=== PATIENT | female | born 1990 | race Caucasian/White ===

== ENCOUNTER 2016-05-29 14:43 | Observation (INO) | payer OTHER ==
[2016-05-29 15:10] VITALS: O2SAT 98
[2016-05-29 16:10] VITALS: PULSE 91
[2016-05-29] MEDS ORDERED: Sodium Chloride 0.9% 1000 ML 1,000 ML IV STA (16:53)
[2016-05-29] MEDS ORDERED: Sodium Chloride 0.9% 1000 ML 1,000 ML ONE (17:03)
[2016-05-29 18:07] LABS: COMPLETE URINE MICROSCOPIC? NO; Collection Type CCMS
[2016-05-29 19:55] VITALS: BP 127/74
--- NOTE | 2016-05-30 08:48 | XRAY ---
Indication: Interval growth. Cervical length. 2-dimensional OB ultrasound performed. Comparison: April 12, 2016 Again there is a single viable intrauterine now in cephalic presentation. Normal four-chamber heart with heart rate 110 bpm. Normal three-vessel cord and cord insertion. Images of the head, spine, kidneys, and bladder are unremarkable. Placenta is anterior without abruption/previa. Cervical length measures 3.9 cm. BPD measures 6.65 cm corresponding to 26 weeks 6 days. HC measures 25.35 cm corresponding to 27 weeks 4 day. AC measures 21.79 cm corresponding to 26 weeks 2 days. FL measures 4.78 cm corresponding to 26 weeks 0 days. SAMPSON is 15.2 cm. Impression: Again single viable intrauterine with mean gestational age of 26 weeks 5 days. Normal progression in the .
== END 2016-05-29 19:40 | disposition home or self-care (01) ==
LOC: EDSTATUS 15:19 → OB 15:23
PROVIDERS: ADMIT Family Medicine; ATTEND Family Medicine
DX: Z34.92 Encounter for supervision of normal pregnancy, unspecified, second trimester (principal)
CPT/HCPCS: 36000; 76805; 81002; G0378

== ENCOUNTER 2016-05-29 19:51 | Emergency (ER) | payer OTHER ==
[2016-05-29] MEDS ORDERED: ROCEPHIN 1 Gm-D5w 50 ml Bag** 50 ML IV ONE ×2 (19:56→20:20)
[2016-05-29] MEDS ORDERED: Sodium Chloride 0.9% 1000 ML 1,000 ML ONE (19:58)
[2016-05-29] MEDS ORDERED: Sodium Chloride 0.9% 1000 ML 1,000 ML IV SCH (20:00)
[2016-05-29 20:08] LABS: BASOPHIL % 0.1 % (0.0-0.4); Eosinophil % 1.4 % (0.00-5.0); Granulocytes % 70.3 % (36.0-66.0); Lymphocytes % 19.9 % (24.0-44.0); Mean Corpuscular Hemoglobin 27.9 pg (26-32); Mean Platelet Volume 10.8 fl (6-9.5); Monocytes % 8.3 % (0.0-12.0); Platelet Count 377 K/mm3 (150-450); Red Blood Count 3.62 M/mm3 (4.1-5.4); White Blood Count 10.7 K/mm3 (4.0-10.5)
[2016-05-29 20:11] LABS: BLOOD UREA NITROGEN 5 mg/dL (9-20); CHLORIDE 105 mEq/L (98-107); Carbon Dioxide 19.8 mEq/L (21-32); Glucose 99 MG/DL (70-110); LIPASE 139 U/L (73-393); Potassium 3.7 mEq/L (3.5-5.1); SODIUM 138 mEq/L (136-145)
--- NOTE | 2016-05-29 20:49 | ERPHSYRPT ---
- History of Present Illness Time Seen by Provider: 05/29/16 20:10 Source: patient Exam Limitations: clinical condition Patient Subjective Stated Complaint: pt was dizzy today and went to drs office and was sent to the hospital -she started in er [place] telling staff she was having abd pain possible contractions-sent to ob for monitoring where she received a liter of fluids for contractions which then stopped -she also noted bleeding from her right nares today which has her concerned -no bleeding at present Triage Nursing Assessment: pt is awake and alert and able to answer questions in no distress Physician History: PATIENT IS A -1, PARA-0, 27 WEEKS GESTATION COMPLAINS OF PRODUCTIVE COUGH YELLOW SPUTUM, ASSOCIATED WITH DIZZINESS ON OCCASION AND EPIGASTRIC PAIN. PATIENT EVALUATED IN LABOR AND DELIVERY PLACED ON MONITOR PRIOR TO ER VISIT. DENIES DYSPNEA, DIZZINESS, FEVER, CHEST PAIN. Timing/Duration: yesterday Cough Quality/Degree: moderate, productive cough Possible Cause: no prior episodes Modifying Factors: Improves With: coughing Associated Symptoms: cough, dizziness, other (EPIGASTRIC PAIN UPON COUGHING) Allergies/Adverse Reactions: pseudoephedrine [From Sudafed] Allergy (Intermediate, Verified 05/29/16 20:12) HALLUCINATION Home Medications: Docusate Sodium 100 mg [Colace 100 MG] 1 tab PO BID 05/29/16 [History] Iron,Carbonyl/Vit C/Vit B12/FA [Iron 100 Plus Tablet] 1 each PO BID 05/29/16 [ History] Vits W-Ca,Fe,FA(<1Mg) [] 1 tab PO DAILY 05/29/16 [History] Hx Tetanus, Diphtheria Vaccination/Date Given: Yes Hx Influenza Vaccination/Date Given: No Hx Pneumococcal Vaccination/Date Given: No - Review of Systems Constitutional: No Symptoms, No Fever, No Chills Eyes: No Symptoms Ears, Nose, & Throat: No Symptoms Respiratory: Cough, No Dyspnea Cardiac: No Symptoms, No Chest Pain, No Edema, No Syncope Abdominal/Gastrointestinal: Abdominal Pain, No Nausea, No Vomiting, No Diarrhea Genitourinary Symptoms: No Symptoms, No Dysuria Musculoskeletal: No Symptoms, No Back Pain, No Neck Pain Skin: No Symptoms, No Rash Neurological: No Symptoms, No Dizziness, No Focal Weakness, No Sensory Changes Psychological: No Symptoms Endocrine: No Symptoms All Other Systems: Reviewed and Negative - Past Medical History Pertinent Past Medical History: No - Past Surgical History Past Surgical History: Yes - Social History Smoking Status: Former smoker Exposure to second hand smoke: No Drug Use: none Patient Lives Alone: No - Female History Expected Date of Delivery: 08/31/16 - Nursing Vital Signs Nursing Vital Signs: Initial Vital Signs Temperature 98.6 F Temperature Source Oral Pulse Rate 108 Respiratory Rate 16 Blood Pressure [Right Arm] 120/74 Pain Intensity 0 - Physical Exam General Appearance: no apparent distress, alert Eye Exam: PERRL/EOMI, eyes nml inspection Ears, Nose, Throat Exam: normal ENT inspection, TMs normal, pharynx normal, moist mucous membranes Neck Exam: normal inspection, non-tender, supple, full range of motion Respiratory Exam: normal breath sounds, lungs clear, No respiratory distress Cardiovascular Exam: regular rate/rhythm, normal heart sounds Gastrointestinal/Abdomen Exam: soft, normal bowel sounds, other (GRAVID, FUNDAL HEIGHT 5FB BELOW XYPHOID PROCESS), No tenderness Back Exam: normal inspection, No CVA tenderness, No vertebral tenderness Extremity Exam: normal inspection, normal range of motion Neurologic Exam: alert, oriented x 3, cooperative, normal mood/affect, sensation nml, No motor deficits Skin Exam: normal color, warm, dry, No rash Lymphatic Exam: No adenopathy SpO2 Interpretation: normal SpO2: 98 Oxygen Delivery: Room Air Ordered Tests: Active Orders 24 hr Category Date Time Status IV Insertion STAT Care 05/29/16 19:55 Active Orthostatic Vital Signs STAT Care 05/29/16 19:55 Active AMYLASE Stat Lab 05/29/16 15:00 Completed BMP Stat Lab 05/29/16 15:00 Completed CBC W DIFF Stat Lab 05/29/16 15:00 Completed LIPASE Stat Lab 05/29/16 15:00 Completed Medication Summary Generic Name Dose Route Start Last Admin Trade Name Freq PRN Reason Stop Dose Admin Sodium Chloride 1,000 mls @ 500 mls/hr 05/29/16 20:00 05/29/16 20:05 Sodium Chloride 0.9% 1000 Ml IV 06/28/16 19:59 500 mls/hr .Q2H ALAN Administration Discontinued Medications Generic Name Dose Route Start Last Admin Trade Name Freq PRN Reason Stop Dose Admin Ceftriaxone Sodium/Dextrose 50 mls @ 100 mls/hr 05/29/16 19:56 05/29/16 20:26 Rocephin 1 Gm-D5w 50 Ml Bag IV 05/29/16 20:25 100 mls/hr STAT ONE Administration Sodium Chloride Confirm 05/29/16 19:58 Sodium Chloride 0.9% 1000 Ml Administered 05/29/16 19:59 Dose 1,000 mls @ ud .ROUTE .STK-MED ONE Ceftriaxone Sodium/Dextrose Confirm 05/29/16 20:20 Rocephin 1 Gm-D5w 50 Ml Bag Administered 05/29/16 20:21 Dose 50 mls @ ud IV .STK-MED ONE Lab/Rad Data: Laboratory Result Diagrams 05/29/16 15:00 05/29/16 15:00 Laboratory Results 05/29/16 05/29/16 Range/Units 15:00 15:00 WBC 10.7 H (4.0-10.5) K/mm3 RBC 3.62 L (4.1-5.4) M/mm3 Hgb 10.1 L (12.0-16.0) gm/dl Hct 31.5 L (35-47) % MCV 87.0 (78-100) fl MCH 27.9 (26-32) pg MCHC 32.1 (32-36) g/dl RDW 14.0 (11.5-14.0) % Plt Count 377 (150-450) K/mm3 MPV 10.8 H (6-9.5) fl Gran % 70.3 H (36.0-66.0) % Lymphocytes % 19.9 L (24.0-44.0) % Monocytes % 8.3 (0.0-12.0) % Eosinophils % 1.4 (0.00-5.0) % Basophils % 0.1 (0.0-0.4) % Basophils # 0.01 (0-0.4) Sodium 138 (136-145) mEq/L Potassium 3.7 (3.5-5.1) mEq/L Chloride 105 (98-107) mEq/L Carbon Dioxide 19.8 L (21-32) mEq/L Anion Gap 17.0 H (5-15) MEQ/L BUN 5 L (9-20) mg/dL Creatinine 0.54 L (0.55-1.30) mg/dl Estimated GFR > 60 ML/MIN Glucose 99 (70-110) MG/DL Calcium 9.0 (8.5-10.1) mg/dL Amylase 68 (25-115) U/L Lipase 139 (73-393) U/L - Progress Progress Note: 05/29/16 20:48 PATIENT GIVEN IV FLUIDS NORMAL SALINE 500ML/HR, ROCEPHIN 1GM IVPB Counseled pt/family regarding: lab results, diagnosis - Departure Time of Disposition: 21:00 Departure Disposition: Home Clinical Impression: ACUTE BRONCHITIS Condition: Stable Critical Care Time: No Additional Instructions: DRINK PLENTY OF FLUIDS. ANTIBIOTIC CEFTIN 250MG TWICE DAILY FOR 10 DAYS. CONSULT YOUR FAMILY PHYSICIAN FOR FOLLOWUP. TYLENOL NEEDED FOR PAIN OR FEVER. Prescriptions: Cefuroxime Axetil [Cefuroxime] 250 mg PO BID #20 tablet
[2016-05-29 21:14] VITALS: BP 130/76; PULSE 96; O2SAT 97
== END 2016-05-29 21:14 | disposition home or self-care (01) ==
LOC: ED 19:51
DX: J20.9 Acute bronchitis, unspecified (principal); Z33.1 Pregnant state, incidental
CPT/HCPCS: 36000; 36415; 76805; 80048; 81002; 82150; 83690; 85025; 96360; 96365; 99283; G0378; J0696

== ENCOUNTER 2016-07-03 20:39 | Observation (INO) | payer OTHER ==
[2016-07-03 21:46] LABS: COMPLETE URINE MICROSCOPIC? YES; Collection Type CCMS
[2016-07-03 21:47] LABS: Bacteria RARE /HPF (NEGATIVE); Epithelial Cells PACKED /HPF (FEW); WBC 0-2 /HPF (0-5)
[2016-07-03] MEDS ORDERED: Sodium Chloride 0.9% 1000 ML 1,000 ML IV STA (22:00)
[2016-07-03] MEDS ORDERED: Sodium Chloride 0.9% 1000 ML 1,000 ML ONE (22:03)
[2016-07-03] MEDS ORDERED: Lactated Ringers 1,000 ML IV SCH (22:30)
[2016-07-03] MEDS ORDERED: Lactated Ringers 1,000 ML IV ONE (23:24)
[2016-07-04] MEDS ORDERED: PROCARDIA 10 MG PO ONE (00:35)
[2016-07-04] MEDS ORDERED: PROCARDIA 10 MG ONE ×2 (00:37→04:10)
[2016-07-04 01:04] VITALS: BP 121/71; PULSE 100
[2016-07-04] MEDS ORDERED: PROCARDIA 10 MG PO PRN (04:30)
== END 2016-07-04 04:55 | disposition home or self-care (01) ==
LOC: OB 20:39
PROVIDERS: ADMIT Family Medicine; ATTEND Family Medicine
DX: Z34.03 Encounter for supervision of normal first pregnancy, third trimester (principal)
CPT/HCPCS: 80307; 81000; G0378

== ENCOUNTER 2016-07-15 20:57 | Observation (INO) | payer OTHER ==
[2016-07-15 21:54] LABS: Bacteria FEW /HPF (NEGATIVE); COMPLETE URINE MICROSCOPIC? YES; Collection Type CLEAN CATCH; Epithelial Cells MANY /HPF (FEW); Mucus SLIGHT /HPF (NEGATIVE)
[2016-07-15] MEDS ORDERED: Lactated Ringers 1,000 ML IV ONE (22:12)
[2016-07-15] MEDS ORDERED: Ambien 10 MG PO ONE (22:12)
[2016-07-15] MEDS ORDERED: Celestone Soluspan 6MG/ML IM ONE (22:13)
--- NOTE | 2016-07-16 08:27 | PCM.NOTE ---
Date and Time: 07/16/16822 Subjective Assessment: 25yo at 33 wks here with contractions, had continued to contract overnight. was given celestone yesterday, had negative nitrazine. patient does not appear to be in pain Objective Exam General Appearance: no apparent distress Respiratory Exam: normal breath sounds, lungs clear, No respiratory distress Cardiovascular Exam: regular rate/rhythm, normal heart sounds Gastrointestinal/Abdomen Exam: soft, other (gravid) Comments: 07/16/16 08:25 SVE thick, high and closed FHR 140's reactive OBJECTIVE DATA Vital Signs: Vital Signs - 24 hr Temp Pulse Resp BP BP 07/16/16 02:00 97.9 F 106 H 18 133/68 07/15/16 22:00 97.7 F 115 H 18 122/63 07/15/16 21:19 97.7 F 115 H 18 122/63 Pain Assessment - Last Documented Pain Intensity 7 Pain Scale Used 0-10 Pain Scale Intake and Output: Intake & Output 07/13/16 07/14/16 07/15/16 07/16/16 10:59 10:59 11:59 11:59 Intake Total 1600 Balance 1600 Weight 113.398 kg Lab Results: Lab Results-Last 24 Hours 07/15/16 07/15/16 Range/Units 21:31 21:31 Ur Collection Type CLEAN CATCH Urine Color YELLOW (YELLOW) Urine Appearance SLIGHTLY CLOUDY (CLEAR) Urine pH 7.0 (5-6) Ur Specific [place] 1.020 (1.005-1.025) Urine Protein NEGATIVE (Negative) Urine Glucose (UA) NEGATIVE (NEGATIVE) mg/dL Urine Ketones NEGATIVE (NEGATIVE) Urine Nitrite NEGATIVE (NEGATIVE) Urine Bilirubin NEGATIVE (NEGATIVE) Urine Urobilinogen 0.2 (0-1) mg/dL Urine WBC (Auto) TRACE (NEGATIVE) Urine RBC (Auto) NEGATIVE (0-5) Imer/ul Urine Microscopic RBC 0-2 (0-2) /HPF Urine Microscopic WBC 2-5 (0-5) /HPF Ur Epithelial Cells MANY (FEW) /HPF Amorphous Crystals MODERATE (NEGATIVE) /HPF Urine Bacteria FEW (NEGATIVE) /HPF Urine Mucus SLIGHT (NEGATIVE) /HPF Urine Opiates Level NEG. (NEGATIVE) Ur Methadone NEG. (NEGATIVE) Urine Barbiturates NEG. (NEGATIVE) Ur Phencyclidine (PCP) NEG. (NEGATIVE) Urine Amphetamine NEG. (NEGATIVE) U Benzodiazepine Level NEG. (NEGATIVE) Urine Cocaine NEG. (NEGATIVE) Urine Marijuana (THC) NEG. (NEGATIVE) Specimen Received 07/15/162119 Radiology Exams: Radiology Procedures Category Date Time Status OB >14 WKS 1st GESTATION [US] Urgent Exams 07/16/16 08:22 Ordered Assessment/Plan (1) contractions Current Visit: Yes Status: Acute Assessment & Plan: patient received 1 dose of betamethasone last night, will need another dose at 24 hours. will start on procardia 10mg po tid and get u/s with cervical length. if effective will likely continue procardia until 36wks Code(s): O47.9 - FALSE LABOR, UNSPECIFIED
[2016-07-16] MEDS: PROCARDIA 10 MG PO SCH ×2 (08:38→13:34)
--- NOTE | 2016-07-16 09:26 | XRAY ---
Indication: contractions. 2-dimensional OB ultrasound performed. Comparison: May 29, 2016. Again there is a single viable intrauterine in cephalic presentation. Normal four-chamber heart with heart rate 153 bpm. Normal three-vessel cord and cord insertion. Images of the stomach, kidneys, and bladder are unremarkable. Placenta is anterior without abruption/previa. BPD measures 8.57 cm corresponding to 34 weeks 4 days. HC measures 30.58 cm corresponding to 34 weeks 0 day. AC measures 29.73 cm corresponding to 33 weeks 5 days. FL measures 6.64 cm corresponding to 34 weeks 1 days. SAMPSON is 17.8 cm. Impression: Again single viable intrauterine with mean gestational age of 34 weeks 1 day. Normal progression in the .
[2016-07-16 15:31] VITALS: BP 127/71; PULSE 107
== END 2016-07-16 15:10 | disposition home or self-care (01) ==
LOC: OB 20:57
PROVIDERS: ADMIT Family Medicine; ATTEND Family Medicine
DX: O47.03 False labor before 37 completed weeks of gestation, third trimester (principal); Z3A.38 38 weeks gestation of pregnancy
CPT/HCPCS: 76805; 80307; 81000; G0378; J0702

== ENCOUNTER 2016-08-06 13:33 | Observation (INO) | payer OTHER ==
[2016-08-06 15:21] VITALS: BP 129/72; PULSE 108
[2016-08-06 15:52] LABS: Collection Type CCMS
[2016-08-06 15:53] LABS: Bacteria FEW /HPF (NEGATIVE); COMPLETE URINE MICROSCOPIC? YES; Epithelial Cells MANY /HPF (FEW)
== END 2016-08-06 17:00 | disposition home or self-care (01) ==
LOC: OB 13:33
PROVIDERS: ADMIT Family Medicine; ATTEND Family Medicine
DX: Z34.03 Encounter for supervision of normal first pregnancy, third trimester (principal)
CPT/HCPCS: 80307; 81000; G0378

== ENCOUNTER 2016-08-07 16:18 | Observation (INO) | payer OTHER ==
--- NOTE | 2016-08-08 08:52 | XRAY ---
Indication: Evaluate SAMPSON. There is a single viable intrauterine with heart rate 121 bpm. 4 quadrant SAMPSON is 18.9 cm. This previously measured 17.8 cm on July 16, 2016.
== END 2016-08-07 19:55 | disposition home or self-care (01) ==
LOC: OB 16:18
PROVIDERS: ADMIT Family Medicine; ATTEND Family Medicine
DX: Z34.03 Encounter for supervision of normal first pregnancy, third trimester (principal)
CPT/HCPCS: 76815; 80307; G0378

== ENCOUNTER 2016-09-05 07:30 | Inpatient (IN) | payer OTHER ==
[2016-09-05] MEDS ORDERED: BRETHINE 1 MG/ML SQ PRN (18:52)
[2016-09-05] MEDS ORDERED: XYLOCAINE 1% HCL 20 ML MDV IJ PRN (19:08)
[2016-09-05] MEDS ORDERED: Zofran 4 MG/2 ML VIAL IV PRN (19:08)
[2016-09-05 19:22] LABS: BASOPHIL % 0.2 % (0.0-0.4); Eosinophil % 1.2 % (0.00-5.0); Granulocytes % 68.7 % (36.0-66.0); Lymphocytes % 20.8 % (24.0-44.0); Mean Cell Volume 86.9 fl (78-100); Mean Platelet Volume 11.1 fl (6-9.5); Monocytes % 9.1 % (0.0-12.0); Platelet Count 333 K/mm3 (150-450); Red Blood Count 4.06 M/mm3 (4.1-5.4); Red Cell Distribution Width 14.4 % (11.5-14.0); White Blood Count 10.1 K/mm3 (4.0-10.5)
[2016-09-05 19:23] LABS: Mean Corpuscular Hemoglobin 28.5 pg (26-32)
[2016-09-05] MEDS ORDERED: PITOCIN 30 UNITS/ LR 500 ML 500 ML IV SCH (19:30)
[2016-09-05] MEDS ORDERED: Cervidil 10 MG VAG SCH (22:00)
[2016-09-06] MEDS: TYLENOL EXTRA STRENGTH 500 MG PO PRN (01:32)
[2016-09-06 02:35] LABS: Bacteria FEW /HPF (NEGATIVE); COMPLETE URINE MICROSCOPIC? YES; Collection Type CLEAN CATCH; Epithelial Cells MODERATE /HPF (FEW); Mucus MODERATE /HPF (NEGATIVE); Ph 6.5 (5-6)
[2016-09-06] MEDS: Lactated Ringers 1,000 ML IV SCH ×3 (03:14→07:43)
[2016-09-06] MEDS ORDERED: PITOCIN 30 UNITS/ LR 500 ML 500 ML IV SCH (03:30)
[2016-09-06] MEDS ORDERED: Lactated Ringers 1,000 ML IV ONE (07:20)
[2016-09-06] MEDS ORDERED: KEFZOL 1 GM ONE (07:20)
[2016-09-06] MEDS ORDERED: Lactated Ringers 1,000 ML IV SCH (07:30)
[2016-09-06] MEDS ORDERED: Pepcid 20 MG VIAL IV SCH (07:30)
[2016-09-06] MEDS ORDERED: Reglan 10 MG/2 ML IV SCH (07:30)
[2016-09-06] MEDS ORDERED: Pepcid 20 MG VIAL IV ONE (07:40)
[2016-09-06] MEDS ORDERED: Reglan 10 MG/2 ML ONE (07:40)
[2016-09-06] MEDS ORDERED: Anucort-HC SUPPOSITORY PR PRN (07:53)
[2016-09-06] MEDS ORDERED: Mylicon 80MG PO PRN (07:53)
[2016-09-06] MEDS ORDERED: BENADRYL 50 MG/ML IV PRN (07:53)
[2016-09-06] MEDS ORDERED: Restoril 15 MG PO PRN (07:53)
[2016-09-06] MEDS ORDERED: CLARITIN 10 MG PO PRN (07:53)
[2016-09-06] MEDS ORDERED: DEMEROL 75 MG IM PRN (07:53)
[2016-09-06] MEDS ORDERED: CORTISONE 1% CREAM TP PRN (07:53)
[2016-09-06] MEDS ORDERED: Dulcolax 10 MG SUPP PR PRN (07:53)
[2016-09-06] MEDS ORDERED: Zofran 4 MG/2 ML VIAL IV PRN (07:53)
[2016-09-06] MEDS ORDERED: Nubain 10 MG/ML IV PRN (07:53)
[2016-09-06] MEDS ORDERED: Sodium Chloride 0.9% 10 ML FLUSH Syringe IJ PRN (07:53)
[2016-09-06] MEDS ORDERED: DEMEROL 50 MG IV PRN (07:53)
[2016-09-06] MEDS ORDERED: Dermoplast Spray TP PRN (07:53)
[2016-09-06] MEDS ORDERED: HOLD NARCOTIC ANALGESICS AND SEDATIVES X24 HR MC PRN (07:53)
[2016-09-06] MEDS ORDERED: Ambien 10 MG PO PRN (07:53)
[2016-09-06] MEDS ORDERED: LANSINOH 40 GM TOP PRN (07:53)
[2016-09-06] MEDS ORDERED: MORPHINE SULFATE 2 MG INJ IV PRN (07:53)
[2016-09-06] MEDS ORDERED: Narcan 0.4 MG/ML IV PRN (07:53)
[2016-09-06] MEDS ORDERED: Tylenol #3 Tablet PO PRN (07:53)
[2016-09-06] MEDS ORDERED: Phenergan 25 MG INJ IM PRN (07:53)
[2016-09-06] MEDS ORDERED: TYLENOL EXTRA STRENGTH 500 MG PO PRN (07:53)
[2016-09-06] MEDS ORDERED: TUCKS TP PRN (07:53)
[2016-09-06] MEDS ORDERED: SUBLIMAZE 100 MCG/2 ML IV ONE (08:00)
[2016-09-06] MEDS ORDERED: Ephedrine Sulfate 50 MG/ML IV ONE (08:00)
[2016-09-06] MEDS ORDERED: PHENYLEPHRINE HCL IV ONE (08:00)
[2016-09-06] MEDS ORDERED: Astramorph-Pf 5 MG/10 ML IV ONE (08:00)
[2016-09-06] MEDS ORDERED: Pitocin 10 UNITS/ML IV ONE (08:00)
[2016-09-06] MEDS ORDERED: Naropin 0.5% 30 ML VIAL IJ ONE (08:00)
[2016-09-06 08:26] LABS: INR 0.96 (0.8-3.0); PROTIME 10.8 SECONDS (9.95-12.35)
[2016-09-06 08:28] LABS: PTT 26.6 SECONDS (25.3-37.0)
[2016-09-06] MEDS ORDERED: Adacel Vial IM ONE (10:00)
[2016-09-06] MEDS ORDERED: M-M-R II Vaccine With Diluent SQ ONE (10:00)
[2016-09-06] MEDS ORDERED: FERREX 150 PO SCH (10:00)
--- NOTE | 2016-09-06 10:43 | OP ---
SURGERY DATE/TIME: 09/06/2016 0758 PREOPERATIVE DIAGNOSIS: Non-reassuring heart tones. POSTOPERATIVE DIAGNOSIS: Non-reassuring heart tones. PROCEDURE: Primary section. SURGEON: Kanu Sebastian M.D. ANESTHESIA: Spinal by Jerad Islas CRNA. ESTIMATED BLOOD LOSS: 400 cc. IV FLUIDS: 700 cc of crystalloid. URINE OUTPUT: 200 cc clear straw-colored urine. SPECIMEN: Placenta was sent for pathology. DESCRIPTION OF PROCEDURE: The patient was brought in for induction of labor and had persistent decelerations with Pitocin administration at low dose with no cervical change. There appeared to be intolerance of labor with non-reassuring heart tones so I discussed risks, benefits and alternatives with the patient as well as her and she agreed and consented to primary section. The risks, benefits and alternatives were discussed including but not limited to bleeding, infection and damage to surrounding tissues. The patient was taken to the operating room and underwent spinal anesthesia. She was prepped and draped in usual sterile fashion. After adequate level of anesthesia was assessed, a low transverse skin incision was made by knife and carried down to the subcutaneous fat to the level of the fascia and the fascia was nicked on both sides of the midline and extended in horizontal fashion using curved Sherwood scissors. The superior free edge of the fascia was grasped with Natalie clamps and the underlying rectus muscles were dissected free. The same was repeated inferiorly. The peritoneal cavity was opened and bladder blade was inserted. Bladder flap was created and reflected over the lower uterine segment. Horizontal uterine incision was made by knife and carried down to the level of the amniotic membranes which were carefully artificially ruptured. A viable male infant with strong cry was delivered from the vertex presentation. Cord was clamped and cut after his oropharynx and nares were bulb suctioned free. He was handed off to the awaiting nursery team. The uterus was exteriorized. Placenta was removed manually from the uterus. The uterine cavity was wiped free with lap sponge. Next, the uterine incision was closed with #1 chromic in a running locked fashion. A second layer of chromic was used to reinforce and provide hemostasis. Good hemostasis and good closure were achieved. Posterior cul-de-sac was wiped free of blood and clot with moist lap sponge and then the uterus was returned to the peritoneal cavity. The lateral gutters were wiped free of blood and clot. The incision was inspected and noted to be hemostatic. The fascia was closed with 0 Vicryl in a running fashion with good closure and good hemostasis. The subcutaneous fat was irrigated with warm, sterile saline and any areas of bleeding were cauterized with electrocautery. Finally the skin layer was closed with 4-0 undyed Vicryl in a running subcuticular fashion. Steri-Strips and occlusive dressing were placed over the incision and the patient was transferred to the recovery room in excellent condition.
[2016-09-06] MEDS: Dextrose 5%-Lr IV Solution 1000 ML 1,000 ML IV SCH ×2 (11:00→18:50)
[2016-09-06 16:01] LABS: BASOPHIL % 0.1 % (0.0-0.4); Eosinophil % 0.4 % (0.00-5.0); Granulocytes % 79.7 % (36.0-66.0); Lymphocytes % 13.8 % (24.0-44.0); Mean Cell Volume 87.1 fl (78-100); Mean Platelet Volume 10.3 fl (6-9.5); Platelet Count 291 K/mm3 (150-450); Red Blood Count 3.64 M/mm3 (4.1-5.4); Red Cell Distribution Width 14.1 % (11.5-14.0); White Blood Count 14.3 K/mm3 (4.0-10.5)
[2016-09-06 16:06] LABS: Mean Corpuscular Hemoglobin 28.5 pg (26-32)
[2016-09-06] MEDS: Colace 100 MG PO SCH (21:53)
[2016-09-07] MEDS: PERCOCET TABLET 5/325MG PO PRN ×3 (02:37→09:10)
[2016-09-07] MEDS: Dextrose 5%-Lr IV Solution 1000 ML 1,000 ML IV SCH (02:39)
[2016-09-07 05:46] VITALS: O2SAT 98
[2016-09-07 05:57] LABS: BASOPHIL % 0.1 % (0.0-0.4); Eosinophil % 0.7 % (0.00-5.0); Granulocytes % 80.5 % (36.0-66.0); Lymphocytes % 12.2 % (24.0-44.0); Mean Cell Volume 87.6 fl (78-100); Mean Platelet Volume 10.7 fl (6-9.5); Monocytes % 6.5 % (0.0-12.0); Platelet Count 256 K/mm3 (150-450); Red Blood Count 3.23 M/mm3 (4.1-5.4); Red Cell Distribution Width 14.6 % (11.5-14.0); White Blood Count 16.9 K/mm3 (4.0-10.5)
[2016-09-07 05:59] LABS: Mean Corpuscular Hemoglobin 28.7 pg (26-32)
[2016-09-07] MEDS: Colace 100 MG PO SCH ×2 (09:11→21:27)
[2016-09-07] MEDS: MOTRIN 400 MG PO PRN ×2 (11:59→18:03)
[2016-09-07] MEDS: TYLENOL EXTRA STRENGTH 500 MG PO PRN (15:04)
[2016-09-08] MEDS: MOTRIN 400 MG PO PRN (01:01)
--- NOTE | 2016-09-08 09:54 | PCM.DS ---
Discharge Summary Date of Admission: 09/06/16 07:30 Admitting Physician: ERIN FLORES Consults: Consults on Case 09/06/16 07:31 Notify Anesthesia Provider ROUTINE Notify Physician OF ADMISSION 09/06/16 07:54 Notify Anesthesia Provider PRN Primary Care Provider: ERIN FLORES Allergies Allergies mold Allergy (Intermediate, Verified 09/05/16 19:18) pseudoephedrine [From Sudafed] Allergy (Intermediate, Verified 09/05/16 19:18) HALLUCINATION Hospital Summary - Hospital Course Hospital Course: Pt had c/s for intolerance of labor, now POD #2, doing well. No dizziness , tolerating pain with tylenol and ibuprofen. Jen po. Pumping breastmilk. - Vitals & Intake/Output Vital Signs: Vital Signs Temperature 97.8 F 09/08/16 03:00 Pulse Rate 92 H 09/08/16 03:00 Respiratory Rate 18 09/08/16 03:00 Blood Pressure 139/74 09/08/16 03:00 O2 Sat by Pulse Oximetry 98 09/07/16 05:44 Oxygen-Last Documented O2 Percentage 100% Intake & Output: Intake & Output 09/05/16 09/06/16 09/07/16 09/08/16 11:59 11:59 11:59 11:59 Intake Total 3900 3153 Output Total 1950 Balance 3900 1203 Weight 117.48 kg - Lab Result Diagrams: 09/07/16 05:10 Micro Results-Entire Visit: Microbiology 09/06/16 07:00 - Preliminary Urine, Catheterized NO GROWTH TO DATE Discharge Exam General Appearance: no apparent distress Neurologic Exam: alert, oriented x 3, cooperative Skin Exam: normal color, warm, dry Respiratory Exam: normal breath sounds, lungs clear, No crackles/rales, No rhonchi, No wheezing Cardiovascular Exam: regular rate/rhythm, normal heart sounds, No murmur Gastrointestinal/Abdomen Exam: soft, normal bowel sounds, other (fundus firm under umbilicus. wound c/d/i), No tenderness Extremity Exam: swelling (trace LE edema) Final Diagnosis/Problem List - Final Discharge Diagnosis/Problem (1) delivery delivered Current Visit: Yes Status: Acute Assessment & Plan: Doing well, d/c home today. Will send some T3 in the event she has more pain tonight or over the next few days. (2) Anemia Current Visit: Yes Status: Acute Assessment & Plan: Hgb 9.3 this morning, will send her home on iron. - Discharge Disposition: Home, Self-Care Condition: Stable Prescriptions: New Ferrous Sulfate 325 mg [Feosol 325 mg] 325 mg PO DAILY #30 tablet Codeine Phosphate/APAP #3 [Tylenol #3 Tablet] 1 - 2 tab PO Q4H PRN PRN # 20 tablet PRN Reason: Severe Pain Continue Iron,Carbonyl/Vit C/Vit B12/FA [Iron 100 Plus Tablet] 1 each PO BID Docusate Sodium 100 mg [Colace 100 MG] 1 tab PO DAILY Vits W-Ca,Fe,FA(<1Mg) [] 1 tab PO DAILY Additional Instructions: Follow up in OB dept on 09/10/16 for check up Make an appt to see in one week Follow up with: ERIN FLORES MD [Primary Care Provider] - 1 Week Forms: OB Discharge Instructions
[2016-09-08 11:27] VITALS: BP 128/70; PULSE 100
== END 2016-09-08 10:50 | disposition home or self-care (01) | DRG 766 ==
LOC: OB 07:30 → OBSVTOIN 09-06 07:30
PROVIDERS: ADMIT Family Medicine; ATTEND Family Medicine
PROC: 10D00Z1 Extraction of Products of Conception, Low, Open Approach (ICD-10-PCS; principal; 2016-09-06)
DX: O76 Abnormality in fetal heart rate and rhythm complicating labor and delivery (principal); Z3A.40 40 weeks gestation of pregnancy; Z37.0 Single live birth
CPT/HCPCS: 01961; 36415; 62322; 64425; 80307; 81000; 85025; 85610; 85730; 86850; 86900; 86901; 87086; 88307; 90471; 90707; 90715; 94799; G0378; J0690; J2274; J2370; J2590; J2795; J3010; L0625; A9270-GY

== ENCOUNTER 2018-06-18 20:13 | Emergency (ER) | payer MEDICAID ==
--- NOTE | 2018-06-18 21:28 | ERPHSYRPT ---
- History of Present Illness Time Seen by Provider: 06/18/18 20:35 Source: patient, family Exam Limitations: no limitations Patient Subjective Stated Complaint: pt is alert and oriented. pt is ambulatory with a steady gait. pt comes in with complaint of brown spotting. pt is 10weeks and 3 days . pt has had brown spotting for about a week. pt had pap smear saturday with a slight increase in spotting. pt states that the spotting is brown in color and "hasn't even gotten on her underwear". pt denies any cramping. pt states she had a miscarriage at about the same gestation in april and is "just worried". Triage Nursing Assessment: see above Physician History: 27 y/o white female who is 10 weeks presents with brownish red vaginal discharge for 2 to 3 days. pt underwent a vaginal u/s at 6 weeks and there was a single viable intrauterine fetus. additionally, pt underwent a vaginal exam and pap smear by dr. Flores 48 hours ago. per pt report everything was normal. no abd pain and no urinary sx. pt was dx with influenza a 2 days ago and is on tamiflu Timing/Duration: day(s) (2 to 3 days) Activites at Onset: none Pain Radiation: none Severity of Pain-Max: none Severity of Pain-Current: none Sexual intercourse history: non-contributory Modifying Factors: Improves With: nothing Associated Symptoms: vaginal discharge (brownish sesar), No abdominal pain, No fever, No nausea, No vomiting Allergies/Adverse Reactions: mold Allergy (Intermediate, Verified 09/05/16 19:18) pseudoephedrine [From Sudafed] Allergy (Intermediate, Verified 09/05/16 19:18) HALLUCINATION Home Medications: Vits W-Ca,Fe,FA(<1Mg) [] 1 tab PO DAILY 05/29/16 [History] Acetaminophen 325 mg [Tylenol 325 mg] 325 mg PO STAT 06/18/18 [History] Fluticasone Propionate [Flonase NASAL] 16 gm NS DAILY 06/18/18 [History] Hx Tetanus, Diphtheria Vaccination/Date Given: Yes Hx Influenza Vaccination/Date Given: No Hx Pneumococcal Vaccination/Date Given: No - Review of Systems Constitutional: No Symptoms Eyes: No Symptoms Ears, Nose, & Throat: No Symptoms Respiratory: No Symptoms Cardiac: No Symptoms Abdominal/Gastrointestinal: No Symptoms, No Abdominal Pain, No Nausea, No Vomiting, No Diarrhea Genitourinary Symptoms: Vaginal Discharge (brownish red) Musculoskeletal: No Symptoms Skin: No Symptoms Neurological: No Symptoms Psychological: No Symptoms Endocrine: No Symptoms Hematologic/Lymphatic: No Symptoms Immunological/Allergic: No Symptoms All Other Systems: Reviewed and Negative - Past Medical History Pertinent Past Medical History: No Neurological History: Migraines ENT History: No Pertinent History Cardiac History: No Pertinent History Respiratory History: No Pertinent History Endocrine Medical History: No Pertinent History Musculoskeletal History: No Pertinent History GI Medical History: No Pertinent History History: No Pertinent History Psycho-Social History: No Pertinent History Female Reproductive Disorders: No Pertinent History - Past Surgical History Past Surgical History: Yes Neuro Surgical History: No Pertinent History Cardiac: No Pertinent History Respiratory: No Pertinent History Gastrointestinal: No Pertinent History Genitourinary: No Pertinent History Musculoskeletal: No Pertinent History Female Surgical History: Section Other Surgical History: Cat Scratch fever, surgery on neck 2007 - Social History Smoking Status: Never smoker Exposure to second hand smoke: Yes Drug Use: none Patient Lives Alone: No - Female History Hx Now: Yes Expected Date of Delivery: 01/12/19 - Nursing Vital Signs Nursing Vital Signs: Initial Vital Signs Temperature 98.0 F 06/18/18 20:43 Pulse Rate 120 H 06/18/18 20:43 Respiratory Rate 18 06/18/18 20:43 Blood Pressure 137/86 06/18/18 20:43 O2 Sat by Pulse Oximetry 96 06/18/18 20:43 Pain Scale Pain Intensity 0 - Physical Exam General Appearance: no apparent distress, alert, anxiety Eye Exam: PERRL/EOMI Ears, Nose, Throat Exam: normal ENT inspection, moist mucous membranes Neck Exam: normal inspection, non-tender, supple, full range of motion Respiratory Exam: normal breath sounds, lungs clear, airway intact, No chest tenderness, No respiratory distress Cardiovascular Exam: regular rate/rhythm, normal heart sounds, normal peripheral pulses Gastrointestinal/Abdomen Exam: soft, normal bowel sounds, No tenderness, No guarding, No rebound Pelvic Exam: not done Rectal Exam: not done Back Exam: normal inspection, normal range of motion, vertebral tenderness, No CVA tenderness Extremity Exam: normal inspection, normal range of motion, pelvis stable Neurologic Exam: alert, oriented x 3, cooperative, title officer II-XII nml as tested Skin Exam: normal color, warm, dry Lymphatic Exam: No adenopathy SpO2 Interpretation: normal SpO2: 96 O2 Delivery: Room Air - Course Nursing assessment & vital signs reviewed: Yes - Progress Progress: unchanged Air Movement: good Blood Culture(s) Obtained: No Antibiotics given: No Counseled pt/family regarding: diagnosis, need for follow-up - Departure Time of Disposition: 21:30 Departure Disposition: Home Clinical Impression: Vaginal discharge during in first trimester Condition: Stable Critical Care Time: No Referrals: ERIN FLORES MD [Primary Care Provider] - Additional Instructions: follow up tomorrow morning for scheduled ob ultrasound
[2018-06-18 21:54] VITALS: BP 133/73; PULSE 100; O2SAT 95
== END 2018-06-18 21:50 | disposition home or self-care (01) ==
LOC: ED 20:13
DX: O26.891 Other specified pregnancy related conditions, first trimester (principal); N89.8 Other specified noninflammatory disorders of vagina
CPT/HCPCS: 99283

== ENCOUNTER 2018-11-04 11:52 | Emergency (ER) | payer MEDICAID ==
[2018-11-04 12:14] VITALS: BP 139/84; PULSE 115; O2SAT 96
--- NOTE | 2018-11-04 12:17 | ERPHSYRPT ---
- History of Present Illness Time Seen by Provider: 11/04/18 12:12 Source: patient Exam Limitations: no limitations Physician History: 28 y/o white female who is 31 weeks presents within one hour after being stung by a wasp on the back of right hand. initial swelling. ice applied. no meds used. sx improved. no soa. Timing/Duration: today Quality: itchy Severity: mild Location: hands (right hand) Possible Causes: insect sting Associated Symptoms: denies symptoms Allergies/Adverse Reactions: mold Allergy (Intermediate, Verified 09/05/16 19:18) pseudoephedrine [From Sudafed] Allergy (Intermediate, Verified 09/05/16 19:18) HALLUCINATION Home Medications: Vits W-Ca,Fe,FA(<1Mg) [] 1 tab PO DAILY 05/29/16 [History] Acetaminophen 325 mg [Tylenol 325 mg] 325 mg PO STAT 06/18/18 [History] Fluticasone Propionate [Flonase NASAL] 16 gm NS DAILY 06/18/18 [History] Hx Tetanus, Diphtheria Vaccination/Date Given: Yes Hx Influenza Vaccination/Date Given: No Hx Pneumococcal Vaccination/Date Given: No - Review of Systems Constitutional: No Symptoms Eyes: No Symptoms Ears, Nose, & Throat: No Symptoms Respiratory: No Symptoms Cardiac: No Symptoms Abdominal/Gastrointestinal: No Symptoms Genitourinary Symptoms: No Symptoms Musculoskeletal: No Symptoms Skin: Other (very faint swelling back of right hand) Neurological: No Symptoms Psychological: No Symptoms Endocrine: No Symptoms Hematologic/Lymphatic: No Symptoms Immunological/Allergic: No Symptoms All Other Systems: Reviewed and Negative - Past Medical History Pertinent Past Medical History: No Neurological History: Migraines ENT History: No Pertinent History Cardiac History: No Pertinent History Respiratory History: No Pertinent History Endocrine Medical History: No Pertinent History Musculoskeletal History: No Pertinent History GI Medical History: No Pertinent History History: No Pertinent History Psycho-Social History: No Pertinent History Female Reproductive Disorders: No Pertinent History - Past Surgical History Past Surgical History: Yes Neuro Surgical History: No Pertinent History Cardiac: No Pertinent History Respiratory: No Pertinent History Gastrointestinal: No Pertinent History Genitourinary: No Pertinent History Musculoskeletal: No Pertinent History Female Surgical History: Section Other Surgical History: Cat Scratch fever, surgery on neck 2007 - Social History Smoking Status: Never smoker Exposure to second hand smoke: Yes Drug Use: none Patient Lives Alone: No - Physical Exam General Appearance: no apparent distress, alert, anxiety Eye Exam: PERRL/EOMI, eyes nml inspection Ears, Nose, Throat Exam: normal ENT inspection, moist mucous membranes Neck Exam: normal inspection, non-tender, supple, full range of motion Respiratory Exam: airway intact, No chest tenderness, No respiratory distress Gastrointestinal/Abdomen Exam: No tenderness Pelvic Exam: not done Rectal Exam: not done Back Exam: normal inspection, normal range of motion, No CVA tenderness, No vertebral tenderness Extremity Exam: normal range of motion, pelvis stable, other (dorsal aspect right hand mild swelling. 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 return to ED if symptoms worsening.
[2018-11-04] MEDS ORDERED: BENADRYL 25 MG CAPSULE PO ONE (12:18)
[2018-11-04] MEDS ORDERED: Pepcid 20 MG PO ONE (12:18)
[2018-11-04] MEDS ORDERED: BENADRYL 25 MG CAPSULE ONE (12:22)
[2018-11-04] MEDS ORDERED: Pepcid 20 MG ONE (12:22)
== END 2018-11-04 12:57 | disposition home or self-care (01) ==
LOC: ED 11:52
DX: M79.89 Other specified soft tissue disorders (principal); T63.441A Toxic effect of venom of bees, accidental (unintentional), initial encounter; Z3A.31 31 weeks gestation of pregnancy
CPT/HCPCS: 99283; A9270-GY

== ENCOUNTER 2018-11-11 20:49 | Observation (INO) | payer MEDICAID ==
[2018-11-11 21:34] VITALS: O2SAT 95
[2018-11-11 21:36] LABS: Appearance CLEAR (CLEAR); Bilirubin NEGATIVE (NEGATIVE); Blood NEGATIVE Ery/ul (0-5); Glucose NEGATIVE (NEGATIVE); Ketones NEGATIVE (NEGATIVE); Leukocyte Esterase NEGATIVE (NEGATIVE); Nitrite NEGATIVE (NEGATIVE); Protein,Urine Dip NEGATIVE (Negative); Specific Gravity 1.005 (1.005-1.025); Urobilinogen NEGATIVE mg/dL (0-1)
[2018-11-11 21:55] LABS: Amphetamine,Urine NEGATIVE (NEGATIVE); Barbiturate,Urine NEGATIVE (NEGATIVE); Benzodiazepine,Urine NEGATIVE (NEGATIVE); Cocaine,Urine NEGATIVE (NEGATIVE); Methadone,Urine NEGATIVE (NEGATIVE); Opiate,Urine NEGATIVE (NEGATIVE); PCP,Urine NEGATIVE (NEGATIVE); THC,Urine NEGATIVE (NEGATIVE)
[2018-11-11 23:59] VITALS: BP 134/72; PULSE 86
== END 2018-11-11 23:15 | disposition home or self-care (01) ==
LOC: OB 20:49
PROVIDERS: ADMIT Family Medicine; ATTEND Family Medicine
DX: Z34.83 Encounter for supervision of other normal pregnancy, third trimester (principal)
CPT/HCPCS: 80307; 81001; G0378

== ENCOUNTER 2018-11-25 07:00 | Observation (INO) | payer MEDICAID ==
[2018-11-25 08:07] LABS: Appearance CLOUDY (CLEAR); Bacteria FEW /HPF (NEGATIVE); Bilirubin NEGATIVE (NEGATIVE); Blood NEGATIVE Ery/ul (0-5); Epithelial Cells RARE /HPF (FEW); Glucose NEGATIVE (NEGATIVE); Hyaline Casts 0-2 /LPF (0-2); Ketones NEGATIVE (NEGATIVE); Leukocyte Esterase NEGATIVE (NEGATIVE); Mucus SLIGHT /HPF (NEGATIVE); Nitrite NEGATIVE (NEGATIVE); Protein,Urine Dip NEGATIVE (Negative); Specific Gravity 1.017 (1.005-1.025); Urobilinogen NEGATIVE mg/dL (0-1)
[2018-11-25 08:08] LABS: Amourphous Crystal MODERATE /HPF (NEGATIVE)
[2018-11-25 09:05] LABS: BASOPHIL % 0.3 % (0.0-0.4); Basophil (Absolute #) 0.03 (0-0.4); Eosinophil % 1.4 % (0.00-5.0); Eosinophil (Absolute #) 0.15 (0-0.5); Granulocytes % 68.1 % (36.0-66.0); Hematocrit 34.4 % (35-47); Hemoglobin 11.3 gm/dl (12.0-16.0); Lymphocyte (Absolute #) 2.43 (1.0-4.6); Lymphocytes % 22.1 % (24.0-44.0); Mean Corpuscular Hgb Concent. 32.8 g/dl (32-36); Mean Platelet Volume 10.3 fl (6-9.5); Monocyte (Absolute #) 0.89 (0.0-1.3); Monocytes % 8.1 % (0.0-12.0); Platelet Count 331 K/mm3 (150-450); Red Cell Distribution Width 14.3 % (11.5-14.0)
[2018-11-25 09:09] LABS: Mean Corpuscular Hemoglobin 28.2 pg (26-32)
[2018-11-25 09:22] LABS: ALBUMIN 3.8 g/dL (3.5-5.0); ALKALINE PHOSPHATASE 77 U/L (38-126); BLOOD UREA NITROGEN 10 mg/dL (7-17); CHLORIDE 110 mmol/L (98-107); Calcium 9.9 mg/dL (8.4-10.2); Carbon Dioxide 18 mmol/L (22-30); Glucose 114 mg/dL (74-106); SGOT/AST 16 U/L (14-36); SGPT/ALT 17 U/L (0-35); SODIUM 137 mmol/L (137-145); Total Protein 7.6 g/dL (6.3-8.2)
--- NOTE | 2018-11-25 11:48 | XRAY ---
Exam: Renal ultrasound from 11/25/2018. Comparison: None. Indication: Right lower quadrant abdominal pain in 28-year-old gravid female. Findings: The right kidney measures 13.1 cm x 5.1 cm x 6.3 cm and reveals no renal mass, dominant echogenic stone, or hydronephrosis. Renal cortex thickness and echogenicity appear unremarkable. The left kidney measures 13.1 cm x 5.0 cm x 5.7 cm. No left renal mass, dominant stone, or hydronephrosis is seen. Left renal cortex thickness and echogenicity appear unremarkable. The urinary bladder is empty precluding its evaluation. Impression: 1. No significant abnormality is seen within either kidney. Specifically, I see no evidence of hydronephrosis on the right.
--- NOTE | 2018-11-25 11:58 | XRAY ---
Exam: OB ultrasound greater than 14 weeks from 11/25/2018. Comparison: OB ultrasound greater than 14 weeks from 08/08/2018. Indication Right lower quadrant abdominal pain in gravid 28 year-old female. Findings: A single live intrauterine fetus is seen in the breech lie. body movement was seen by the technologist. The heart rate measured 153 bpm. The placenta is anterior and not low-lying. No placenta abruption is seen. The mother's urinary bladder appears empty. The amniotic fluid index measures 13.7 cm which is normal for this stage of . Measurements of the biparietal diameter, head circumference, abdominal circumference, and femur length suggest a composite gestational age of 33 weeks 4 days which represents satisfactory intrauterine growth since the prior study from 08/08/2018. Estimated due date based on size measurements from today's exam is 01/09/2019 versus the estimated due date by LMP of 01/07/2019. These are in reasonable accordance with each other. Estimated weight is 2249 g plus or -337 g (4 lbs. 15 oz.+ or -12 ounces) placing the fetus in the 37.2 percentile. size ratios appear within normal limits, except for a slightly elevated femur length to head circumference ratio of 21.71 (normal 19.61-21.67). The stomach and urinary bladder were identified. The kidneys are identified. A detailed anatomy exam was not performed for this emergency scan. Impression: 1. 33 week 4 day single live intrauterine fetus in the breech lie. There has been satisfactory intrauterine growth since the previous exam from 08/08/2018. 2. Both body movement and normal cardiac activity of the 153 bpm are seen. 3. The placenta is anterior. There is no evidence of placenta abruption or placenta previa. 4. A normal amount of amniotic fluid is seen with the amniotic fluid index of 13.7 cm.
--- NOTE | 2018-11-25 12:06 | XRAY ---
Exam: Limited abdominal ultrasound with attention to the right lower quadrant from 11/25/2018. Comparison: None. Indication: 28-year-old gravid female with right lower quadrant abdominal pain. No fever. Findings: Longitudinal and transverse sonogram images were obtained of the right lower quadrant. Adjacent to the lower medial edge of the lower pole of the right kidney, a hyperechoic area with eccentric internal sonolucency was seen measuring 4.0 cm x 2.9 cm x 4.7 cm. No internal color blood flow is seen. Etiology is not clear by this exam, although I doubt this is related to the appendix. The patient asked that the study be terminated early because she was uncomfortable. Impression: 1. Limited abdominal ultrasound of the right lower quadrant which was terminated early upon the patient's request. The only finding of note was an indeterminate hyperechoic area with eccentric internal sonolucency located inferior medial to the lower pole of the right kidney measuring 4.0 cm x 2.9 cm x 4.7 cm. No internal color blood flow was seen at this site. I'm not sure what this represents,
[2018-11-25] MEDS: MORPHINE SULFATE 4 MG INJ IV PRN ×3 (13:41→22:34)
[2018-11-25] MEDS: Phenergan 25 MG INJ IV PRN ×2 (13:47→20:45)
[2018-11-26] MEDS: MORPHINE SULFATE 4 MG INJ IV PRN ×4 (01:08→14:50)
[2018-11-26] MEDS: Phenergan 25 MG INJ IV PRN ×2 (02:54→09:06)
[2018-11-26 06:07] LABS: BASOPHIL % 0.2 % (0.0-0.4); Basophil (Absolute #) 0.02 (0-0.4); Eosinophil % 0.2 % (0.00-5.0); Eosinophil (Absolute #) 0.03 (0-0.5); Granulocyte Absolute (ANC) 9.53 (1.4-6.9); Granulocytes % 72.5 % (36.0-66.0); Hematocrit 34.2 % (35-47); Hemoglobin 11.2 gm/dl (12.0-16.0); Lymphocyte (Absolute #) 2.53 (1.0-4.6); Lymphocytes % 19.3 % (24.0-44.0); Mean Cell Volume 86.1 fl (78-100); Mean Corpuscular Hemoglobin 28.2 pg (26-32); Mean Corpuscular Hgb Concent. 32.7 g/dl (32-36); Mean Platelet Volume 10.9 fl (6-9.5); Monocyte (Absolute #) 1.02 (0.0-1.3); Monocytes % 7.8 % (0.0-12.0); Platelet Count 355 K/mm3 (150-450); Red Blood Count 3.97 M/mm3 (4.1-5.4); Red Cell Distribution Width 14.3 % (11.5-14.0); White Blood Count 13.1 K/mm3 (4.0-10.5)
[2018-11-26 06:20] LABS: ALBUMIN 3.6 g/dL (3.5-5.0); ALKALINE PHOSPHATASE 71 U/L (38-126); ANION GAP 12.1 MEQ/L (5-15); BLOOD UREA NITROGEN 9 mg/dL (7-17); CHLORIDE 108 mmol/L (98-107); Calcium 9.3 mg/dL (8.4-10.2); Carbon Dioxide 20 mmol/L (22-30); Glucose 104 mg/dL (74-106); Potassium 3.7 mmol/L (3.5-5.1); SGOT/AST 17 U/L (14-36); SGPT/ALT 15 U/L (0-35); SODIUM 136 mmol/L (137-145); Total Protein 7.2 g/dL (6.3-8.2)
--- NOTE | 2018-11-26 09:49 | PCM.NOTE ---
Date and Time: 11/26/18944 Subjective Assessment: 28yo at 34 wks EGA here with complaints of right lower abdominal pain, came on acutely. has severe pain with associated nausea and vomitting since arrival. ob ultrasound reassuring Objective Exam General Appearance: mild distress, obese Neurologic Exam: alert, oriented x 3 Skin Exam: normal color, warm, dry Respiratory Exam: normal breath sounds, lungs clear, No respiratory distress Cardiovascular Exam: regular rate/rhythm, normal heart sounds Gastrointestinal/Abdomen Exam: tenderness (RLQ), other (soft, gravid. right lower quadrant tender to palpation. no guarding or rebound) Extremity Exam: normal inspection, normal range of motion OBJECTIVE DATA Vital Signs: Vital Signs - 24 hr Temp Pulse Resp BP 11/26/18 09:00 98.2 F 70 18 111/55 11/26/18 04:00 98.4 F 72 18 109/55 11/26/18 01:15 18 11/25/18 21:00 98.4 F 80 18 128/60 11/25/18 16:41 98.1 F 86 18 132/69 11/25/18 12:32 97.4 F 70 18 117/65 Pain Assessment - Last Documented Pain Intensity 5 Pain Scale Used 0-10 Pain Scale Intake and Output: Intake & Output 11/23/18 11/24/18 11/25/18 11/26/18 11:59 11:59 11:59 11:59 Output Total 200 Balance -200 Weight 122.47 kg Lab Results: Lab Results-Last 24 Hours 11/26/18 11/26/18 Range/Units 05:08 05:08 WBC 13.1 H (4.0-10.5) K/mm3 RBC 3.97 L (4.1-5.4) M/mm3 Hgb 11.2 L (12.0-16.0) gm/dl Hct 34.2 L (35-47) % MCV 86.1 (78-100) fl MCH 28.2 (26-32) pg MCHC 32.7 (32-36) g/dl RDW 14.3 H (11.5-14.0) % Plt Count 355 (150-450) K/mm3 MPV 10.9 H (6-9.5) fl Gran % 72.5 H (36.0-66.0) % Eos # (Auto) 0.03 (0-0.5) Absolute Lymphs (auto) 2.53 (1.0-4.6) Absolute Monos (auto) 1.02 (0.0-1.3) Lymphocytes % 19.3 L (24.0-44.0) % Monocytes % 7.8 (0.0-12.0) % Eosinophils % 0.2 (0.00-5.0) % Basophils % 0.2 (0.0-0.4) % Absolute Granulocytes 9.53 H (1.4-6.9) Basophils # 0.02 (0-0.4) Sodium 136 L (137-145) mmol/L Potassium 3.7 (3.5-5.1) mmol/L Chloride 108 H (98-107) mmol/L Carbon Dioxide 20 L (22-30) mmol/L Anion Gap 12.1 (5-15) MEQ/L BUN 9 (7-17) mg/dL Creatinine 0.50 L (0.52-1.04) mg/dL Estimated GFR > 60.0 ML/MIN Glucose 104 (74-106) mg/dL Calcium 9.3 (8.4-10.2) mg/dL Total Bilirubin 0.30 (0.2-1.3) mg/dL AST 17 (14-36) U/L ALT 15 (0-35) U/L Alkaline Phosphatase 71 (38-126) U/L Serum Total Protein 7.2 (6.3-8.2) g/dL Albumin 3.6 (3.5-5.0) g/dL Radiology Exams: Radiology Procedures Category Date Time Status ABDOMEN AND PELVIS W/0 CONTRAS [CT] Urgent Exams 11/26/18 08:57 Ordered ABDOMINAL-LIMITED [US] Stat Exams 11/25/18 11:11 Completed KIDNEY [US] Stat Exams 11/25/18 11:12 Completed OB >14 WKS 1st GESTATION [US] Stat Exams 11/25/18 11:12 Completed Assessment/Plan (1) Right lower quadrant abdominal pain affecting in third trimester Current Visit: Yes Status: Acute Assessment & Plan: discussed radiation associated with ct but at 34 weeks organogenesis is completed and baby is viable and this is outweighed by need to r/o appendicitis. Bailey and her Duran both understand this discussion and agree to CT with known risk of radiation etc. u/s was inconclusive and hyperechoic lesion noted Code(s): O26.893 - OTH RELATED CONDITIONS, THIRD TRIMESTER; R10.31 - RIGHT LOWER QUADRANT PAIN (2) Leukocytosis Current Visit: Yes Status: Acute Assessment & Plan: mild increase in WBC further necessitates need to r/o acute appendicitis based on history and exam Code(s): D72.829 - ELEVATED WHITE BLOOD CELL COUNT, UNSPECIFIED
--- NOTE | 2018-11-26 11:23 | XRAY ---
Indication: Right lower quadrant pain and vomiting. Patient 34 weeks . Multiple contiguous axial images obtained through the abdomen and pelvis without contrast. Comparison: None Lung bases are clear. Heart is not enlarged. There is a single intrauterine currently in cephalic presentation. There is a midline pelvic mass posterior to the uterus measuring at least 9.1 x 5.7 x 5.2 cm. It demonstrates soft tissue and fat densities as well as chunky calcifications favoring ovarian dermoid cyst/teratoma. Similar mass is seen right mid abdomen adjacent to the uterus measuring 9.5 x 4.7 x 8.3 cm with possible tiny fluid component and minimal stranding. Noncontrasted stomach and bowel loops appear nonobstructed. Appendix not clearly identified. No free fluid/air. Gallbladder mildly distended without gallstones. Remaining liver, gallbladder, pancreas, spleen, adrenal glands, kidneys, ureters, bladder, and aorta appear unremarkable for noncontrast exam. Osseous structures intact. Impression: 1. Abnormal pelvic and right mid abdomen masses as detailed with CT features favoring ovarian dermoid cysts/teratomas. 10-15% are typically bilateral. Right-sided mass suggests tiny fluid component with minimal stranding, possible leaking cyst versus ovary torsion. 2. Single intrauterine . 3. Remaining CT abdomen/pelvis without contrast exam is negative. Comment: Telephone report was given to the ordering clinician Dr. Sebastian at 1109 hrs. on November 26, 2018. CT DI 23.68
[2018-11-26 15:11] VITALS: BP 124/69; PULSE 81
== END 2018-11-26 15:00 ==
LOC: OB 07:00
PROVIDERS: ADMIT Family Medicine; ATTEND Family Medicine
DX: O26.893 Other specified pregnancy related conditions, third trimester (principal); R10.31 Right lower quadrant pain; O21.9 Vomiting of pregnancy, unspecified; D72.829 Elevated white blood cell count, unspecified; Z3A.34 34 weeks gestation of pregnancy
CPT/HCPCS: 36415; 74176; 76705; 76770; 76805; 80053; 81001; 85025; G0378; J2270; J2550

== ENCOUNTER 2019-07-19 21:14 | Emergency (ER) | payer OTHER ==
[2019-07-19] MEDS ORDERED: TORAdol 30 mg Injection IM ONE (21:34)
[2019-07-19] MEDS ORDERED: Adacel Vial IM ONE ×2 (21:35→21:49)
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
[2019-07-19] MEDS ORDERED: TORAdol 30 mg Injection ONE (21:49)
[2019-07-19 23:10] VITALS: BP 138/74; PULSE 86; O2SAT 100
--- NOTE | 2019-07-20 08:51 | XRAY ---
Indication: Crush injury. Comparison: None 3 views of the left hand demonstrates proximal 2-4 finger soft tissue swelling. No other bony, articular, or soft tissue abnormalities.
== END 2019-07-19 23:38 | disposition home or self-care (01) ==
LOC: ED 21:14
DX: S60.222A Contusion of left hand, initial encounter (principal); S62.92XA Unspecified fracture of left hand, initial encounter for closed fracture; W22.8XXA Striking against or struck by other objects, initial encounter
CPT/HCPCS: 73130; 90471; 90715; 96372; 99284; J1885

== ENCOUNTER 2020-05-10 18:01 | Emergency (ER) | payer OTHER ==
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
[2020-05-10 19:23] VITALS: BP 133/77; PULSE 85; O2SAT 98
[2020-05-10] MEDS ORDERED: NORCO 5/325 MG PO ONE ×2 (19:57→19:59)
[2020-05-10] MEDS ORDERED: Cyclobenzaprine 10 MG PO ONE (19:58)
[2020-05-10] MEDS ORDERED: Cyclobenzaprine 10 MG ONE (20:02)
[2020-05-10] MEDS ORDERED: DELTASONE 20 MG ONE ×2 (20:02→20:05)
[2020-05-10] MEDS ORDERED: NORCO 5/325 MG ONE (20:02)
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
[2020-05-11] MEDS ORDERED: DELTASONE 20 MG PO ONE (19:57)
== END 2020-05-10 20:33 | disposition home or self-care (01) ==
LOC: ED 18:01
DX: S40.011A Contusion of right shoulder, initial encounter (principal); S50.01XA Contusion of right elbow, initial encounter; S60.211A Contusion of right wrist, initial encounter; V43.52XA Car driver injured in collision with other type car in traffic accident, initial encounter
CPT/HCPCS: 73030; 73060; 73080; 73110; 99284; A9270-GY

== ENCOUNTER 2020-08-02 15:54 | Emergency (ER) | payer SELFPAY ==
[2020-08-02 16:09] VITALS: BP 126/76; PULSE 95; O2SAT 98
[2020-08-02] MEDS ORDERED: Norflex 60 MG/2 ML IM ONE (16:24)
[2020-08-02] MEDS ORDERED: TORAdol 30 mg Injection IM ONE (16:24)
[2020-08-02] MEDS ORDERED: TORAdol 30 mg Injection ONE (16:29)
[2020-08-02] MEDS ORDERED: Norflex 60 MG/2 ML ONE (16:30)
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
== END 2020-08-02 16:58 | disposition home or self-care (01) ==
LOC: ED 15:54
DX: M25.511 Pain in right shoulder (principal); M25.521 Pain in right elbow; V89.2XXS Person injured in unspecified motor-vehicle accident, traffic, sequela
CPT/HCPCS: 96372; 99283; J1885; J2360

== ENCOUNTER 2020-09-27 12:41 | Emergency (ER) | payer OTHER ==
--- NOTE | 2020-09-27 13:06 | ERPHSYRPT ---
- History of Present Illness Time Seen by Provider: 09/27/20 13:00 Historian: patient, family Exam Limitations: no limitations Patient Subjective Stated Complaint: Patient states she is having pain 8/10 midline under sternum. Patient states it started in her left flank and is now under sternum but no longer has flank pain. Patient states she believes she has a hernia and had similar pain on Easter this year. States she is normally able to lay on stomach and pain goes away but is not this time. Triage Nursing Assessment: Patient presents to ED stating she is having abdominal pain 8/10. Patient v/s WNL. Abdominal assessment soft tender, no re bound tenderness. Bowel sounds present x 4 Physician History: This is a 29-year-old obese white female who presents with epigastric and lower substernal pain and burning sensation. She has had intermittent symptoms over the last 3 to 4 months. Today, the pain presented more in the left flank and went up into this area. Patient states she has not eaten anything today. Is not necessarily associated with food intake. She has had no vomiting or diarrhea. She does have nausea. She has no known heart disease. Her gallbladder is still in place. She has had no fever or chills. She has had no cough and no shortness of breath. She thinks she might have a hiatal hernia. She is never had a diagnosis of peptic ulcer disease. Timing/Duration: intermittent, other (Chronic over 3 to 4 months) Activities at Onset: none Quality: burning Abdominal Pain Onset Location: epigastric Pain Radiation: no radiation Severity of Pain-Max: moderate Severity of Pain-Current: moderate Modifying Factors: Improves With: nothing Associated Symptoms: nausea, No chest pain, No diaphoresis, No diarrhea, No neck pain, No shortness of breath, No vomiting Previous symptoms: same symptoms as today, no recent treatment Allergies/Adverse Reactions: mold Allergy (Intermediate, Verified 09/27/20 13:01) pseudoephedrine [From Sudafed] Allergy (Intermediate, Verified 09/27/20 13:01) HALLUCINATION nifedipine [From Procardia] Adverse Reaction (Mild, Verified 09/27/20 13:01) Home Medications: Norgestimate-Ethinyl Estradiol [Tri-Sprintec] 1 tab PO DAILY 07/19/19 [History] Sertraline HCl 50 mg [Zoloft 50 mg Tablet] 50 mg PO DAILY 05/10/20 [History] Hx Tetanus, Diphtheria Vaccination/Date Given: Yes Hx Influenza Vaccination/Date Given: No Hx Pneumococcal Vaccination/Date Given: No Travel Risk - International Travel Have you traveled outside of the country in past 3 weeks: No - Coronavirus Screening Are you exhibiting any of the following symptoms?: No Close contact with a COVID-19 positive Pt in past 14-21 Days: No - Vaccine Status Have you recieved a Covid-19 vaccination: No - Review of Systems Constitutional: No Symptoms Eyes: No Symptoms Ears, Nose, & Throat: No Symptoms Respiratory: No Symptoms Cardiac: No Symptoms Abdominal/Gastrointestinal: Abdominal Pain (Epigastric pain and burning), Nausea, No Vomiting, No Diarrhea Genitourinary Symptoms: No Symptoms Musculoskeletal: No Symptoms Skin: No Symptoms Neurological: No Symptoms Psychological: No Symptoms Endocrine: No Symptoms Hematologic/Lymphatic: No Symptoms Immunological/Allergic: No Symptoms All Other Systems: Reviewed and Negative - Past Medical History Pertinent Past Medical History: No Neurological History: Migraines ENT History: No Pertinent History Cardiac History: No Pertinent History Respiratory History: No Pertinent History Endocrine Medical History: No Pertinent History Musculoskeletal History: No Pertinent History GI Medical History: No Pertinent History History: No Pertinent History Psycho-Social History: No Pertinent History Female Reproductive Disorders: No Pertinent History Other Medical History: CAT SCRACTH FEVER 10+ YEARS AGO, C-SECTIONS X 2 CHILDREN - Past Surgical History Past Surgical History: Yes Neuro Surgical History: No Pertinent History Cardiac: No Pertinent History Respiratory: No Pertinent History Gastrointestinal: No Pertinent History Genitourinary: No Pertinent History Musculoskeletal: No Pertinent History Female Surgical History: Section Other Surgical History: Cat Scratch fever, surgery on neck 2007 - Social History Smoking Status: Never smoker Exposure to second hand smoke: No Drug Use: none Patient Lives Alone: No Significant Family History: no pertinent family hx - Female History Hx Last Menstrual Period: 09/12/20 Hx Now: No - Nursing Vital Signs Nursing Vital Signs: Initial Vital Signs Temperature 97.8 F 09/27/20 12:46 Pulse Rate 89 09/27/20 12:46 Blood Pressure 139/90 09/27/20 12:46 O2 Sat by Pulse Oximetry 99 09/27/20 12:46 Pain Scale Pain Intensity 8 - Physical Exam General Appearance: no apparent distress, alert, anxiety, obese Eye Exam: PERRL/EOMI, eyes nml inspection Ears, Nose, Throat Exam: normal ENT inspection, moist mucous membranes Neck Exam: normal inspection, non-tender, supple, full range of motion Respiratory Exam: normal breath sounds, lungs clear, airway intact, No chest tenderness, No respiratory distress Cardiovascular Exam: regular rate/rhythm, normal heart sounds, normal peripheral pulses Gastrointestinal/Abdomen Exam: soft, normal bowel sounds, tenderness (Epigastric area), rebound, No guarding Pelvic Exam: not done Rectal Exam: not done Back Exam: normal inspection, normal range of motion, No CVA tenderness, No vertebral tenderness Extremity Exam: normal inspection, normal range of motion, pelvis stable Neurologic Exam: alert, oriented x 3, cooperative, debt collector II-XII nml as tested, normal mood/affect, nml cerebellar function, nml station & gait, sensation nml Skin Exam: normal color, warm, dry Lymphatic Exam: No adenopathy SpO2 Interpretation: normal SpO2: 99 O2 Delivery: Room Air - Course Nursing assessment & vital signs reviewed: Yes EKG Interpreted by Me: RATE (81), Sinus Rhythm, NORMAL AXIS, NORMAL INTERVALS, NORMAL QRS, NORMAL ST-T, Other (No acute ischemia. No comparison EKG available.) Ordered Tests: Active Orders 24 hr Category Date Time Status EKG-ER Only STAT Care 09/27/20 13:40 Active IV Insertion STAT Care 09/27/20 13:07 Active ABDOMEN AND PELVIS W/0 CONTRAS [CT] Stat Exams 09/27/20 13:07 Completed AMYLASE Stat Lab 09/27/20 13:20 Completed CBC W DIFF Stat Lab 09/27/20 13:20 Completed CMP Stat Lab 09/27/20 13:20 Completed HCG QUALITATIVE,SERUM Stat Lab 09/27/20 13:20 Completed LIPASE Stat Lab 09/27/20 13:20 Completed Lactic Acid Stat Lab 09/27/20 13:06 Completed TROPONIN Q3H Lab 09/27/20 13:45 Completed TROPONIN Q3H Lab 09/27/20 16:45 Ordered TROPONIN Q3H Lab 09/27/20 19:45 Ordered TROPONIN Q3H Lab 09/27/20 22:45 Ordered TROPONIN Q3H Lab 09/28/20 01:45 Ordered UA W/RFX UR CULTURE Stat Lab 09/27/20 13:39 Completed Medication Summary Discontinued Medications Generic Name Dose Route Start Last Admin Trade Name Freq PRN Reason Stop Dose Admin Sodium Chloride 1,000 mls @ 999 mls/hr 09/27/20 13:07 09/27/20 13:19 Sodium Chloride 0.9% 1000 Ml IV 09/27/20 14:07 999 mls/hr .Q1H1M STA Administration Sodium Chloride Confirm 09/27/20 13:15 Sodium Chloride 0.9% 1000 Ml Administered 09/27/20 13:16 Dose 1,000 mls @ ud .ROUTE .STK-MED ONE Ondansetron HCl 4 mg 09/27/20 13:07 09/27/20 13:18 Zofran 4 Mg/2 Ml Vial IV 09/27/20 13:08 4 mg STAT ONE Administration Ondansetron HCl Confirm 09/27/20 13:15 Zofran 4 Mg/2 Ml Vial Administered 09/27/20 13:16 Dose 4 mg .ROUTE .STK-MED ONE Pantoprazole Sodium 40 mg 09/27/20 13:07 09/27/20 13:18 Protonix 40 Mg Iv IV 09/27/20 13:08 40 mg STAT ONE Administration Pantoprazole Sodium Confirm 09/27/20 13:15 Protonix 40 Mg Iv Administered 09/27/20 13:16 Dose 40 mg IV .STK-MED ONE Lab/Rad Data: Laboratory Result Diagrams 09/27/20 13:20 09/27/20 13:20 Laboratory Results 09/27/20 09/27/20 09/27/20 Range/Units 13:45 13:39 13:20 WBC (4.0-10.5) K/mm3 RBC (4.1-5.4) M/mm3 Hgb (12.0-16.0) gm/dl Hct (35-47) % MCV (78-100) fl MCH (26-32) pg MCHC (32-36) g/dl RDW (11.5-14.0) % Plt Count (150-450) K/mm3 MPV (7.5-11.0) fl Gran % (36.0-66.0) % Eos # (Auto) (0-0.5) Absolute Lymphs (auto) (1.0-4.6) Absolute Monos (auto) (0.0-1.3) Lymphocytes % (24.0-44.0) % Monocytes % (0.0-12.0) % Eosinophils % (0.00-5.0) % Basophils % (0.0-0.4) % Absolute Granulocytes (1.4-6.9) Basophils # (0-0.4) Sodium (137-145) mmol/L Potassium (3.5-5.1) mmol/L Chloride (98-107) mmol/L Carbon Dioxide (22-30) mmol/L Anion Gap (5-15) MEQ/L BUN (7-17) mg/dL Creatinine (0.52-1.04) mg/dL Estimated GFR ML/MIN Glucose (74-106) mg/dL Lactic Acid (0.4-2.0) Calcium (8.4-10.2) mg/dL Total Bilirubin (0.2-1.3) mg/dL AST (14-36) U/L ALT (0-35) U/L Alkaline Phosphatase (38-126) U/L Troponin I < 0.012 (0.000-0.034) ng/mL Serum Total Protein (6.3-8.2) g/dL Albumin (3.5-5.0) g/dL Amylase (30-110) U/L Lipase (23-300) U/L Serum , Qual NEGATIVE (Negative) Urine Color YELLOW (YELLOW) Urine Appearance CLOUDY (CLEAR) Urine pH 7.0 (5-6) Ur Specific [place] 1.024 (1.005-1.025) Urine Protein NEGATIVE (Negative) Urine Ketones NEGATIVE (NEGATIVE) Urine Blood NEGATIVE (0-5) Imer/ul Urine Nitrite NEGATIVE (NEGATIVE) Urine Bilirubin NEGATIVE (NEGATIVE) Urine Urobilinogen NEGATIVE (0-1) mg/dL Ur Leukocyte Esterase TRACE (NEGATIVE) Urine WBC (Auto) NONE (0-5) /HPF Urine RBC (Auto) NONE (0-2) /HPF U Epithel Cells (Auto) MODERATE (FEW) /HPF Urine Bacteria (Auto) NONE (NEGATIVE) /HPF Urine Mucus (Auto) SLIGHT (NEGATIVE) /HPF Urine Culture Reflexed NO (NO) Urine Glucose NEGATIVE (NEGATIVE) mg/dL 09/27/20 09/27/20 09/27/20 Range/Units 13:20 13:20 13:06 WBC 11.2 H (4.0-10.5) K/mm3 RBC 4.28 (4.1-5.4) M/mm3 Hgb 11.4 L (12.0-16.0) gm/dl Hct 36.6 (35-47) % MCV 85.5 (78-100) fl MCH 26.6 (26-32) pg MCHC 31.1 L (32-36) g/dl RDW 13.7 (11.5-14.0) % Plt Count 367 (150-450) K/mm3 MPV 9.8 (7.5-11.0) fl Gran % 65.2 (36.0-66.0) % Eos # (Auto) 0.21 (0-0.5) Absolute Lymphs (auto) 2.90 (1.0-4.6) Absolute Monos (auto) 0.77 (0.0-1.3) Lymphocytes % 25.8 (24.0-44.0) % Monocytes % 6.9 (0.0-12.0) % Eosinophils % 1.9 (0.00-5.0) % Basophils % 0.2 (0.0-0.4) % Absolute Granulocytes 7.32 H (1.4-6.9) Basophils # 0.02 (0-0.4) Sodium 137 (137-145) mmol/L Potassium 4.0 (3.5-5.1) mmol/L Chloride 104 (98-107) mmol/L Carbon Dioxide 24 (22-30) mmol/L Anion Gap 12.9 (5-15) MEQ/L BUN 13 (7-17) mg/dL Creatinine 0.58 (0.52-1.04) mg/dL Estimated GFR > 60.0 ML/MIN Glucose 101 (74-106) mg/dL Lactic Acid 1.0 (0.4-2.0) Calcium 9.2 (8.4-10.2) mg/dL Total Bilirubin 0.40 (0.2-1.3) mg/dL AST 20 (14-36) U/L ALT 21 (0-35) U/L Alkaline Phosphatase 61 (38-126) U/L Troponin I (0.000-0.034) ng/mL Serum Total Protein 7.3 (6.3-8.2) g/dL Albumin 4.1 (3.5-5.0) g/dL Amylase 66 (30-110) U/L Lipase 67 (23-300) U/L Serum , Qual (Negative) Urine Color (YELLOW) Urine Appearance (CLEAR) Urine pH (5-6) Ur Specific [place] (1.005-1.025) Urine Protein (Negative) Urine Ketones (NEGATIVE) Urine Blood (0-5) Imer/ul Urine Nitrite (NEGATIVE) Urine Bilirubin (NEGATIVE) Urine Urobilinogen (0-1) mg/dL Ur Leukocyte Esterase (NEGATIVE) Urine WBC (Auto) (0-5) /HPF Urine RBC (Auto) (0-2) /HPF U Epithel Cells (Auto) (FEW) /HPF Urine Bacteria (Auto) (NEGATIVE) /HPF Urine Mucus (Auto) (NEGATIVE) /HPF Urine Culture Reflexed (NO) Urine Glucose (NEGATIVE) mg/dL - Progress Progress: improved, pain not gone completely, re-examined Progress Note: 09/27/20 14:31 CAT scan of the abdomen and pelvis shows ? Gallbladder sludge. Counseled pt/family regarding: lab results, diagnosis, need for follow-up, rad results - Departure Departure Disposition: Home Clinical Impression: Epigastric abdominal pain Condition: Stable Critical Care Time: No Referrals: ERIN FLORES MD [Primary Care Provider] - Additional Instructions: Drink plenty fluids. Avoid fatty greasy spicy foods follow-up with your primary care physician for further management including gallbladder ultrasound, HIDA scan if indicated Prescriptions: Ondansetron ODT 4 MG [Zofran Odt 4 mg] 4 mg PO Q6H PRN PRN #10 tab.rapdis PRN Reason: Vomiting
[2020-09-27] MEDS ORDERED: Zofran 4 MG/2 ML VIAL IV ONE (13:07)
[2020-09-27] MEDS ORDERED: Sodium Chloride 0.9% 1000 ML 1,000 ML IV STA (13:07)
[2020-09-27] MEDS ORDERED: PROTONIX 40 MG IV IV ONE ×2 (13:07→13:15)
[2020-09-27] MEDS ORDERED: Sodium Chloride 0.9% 1000 ML 1,000 ML ONE (13:15)
[2020-09-27] MEDS ORDERED: Zofran 4 MG/2 ML VIAL ONE (13:15)
[2020-09-27 13:27] LABS: Absolute Neutrophil Ct (ANC) 7.32 (1.4-6.9); BASOPHIL % 0.2 % (0.0-0.4); Basophil (Absolute #) 0.02 (0-0.4); Eosinophil % 1.9 % (0.00-5.0); Eosinophil (Absolute #) 0.21 (0-0.5); Hematocrit 36.6 % (35-47); Hemoglobin 11.4 gm/dl (12.0-16.0); Lymphocytes % 25.8 % (24.0-44.0); Mean Cell Volume 85.5 fl (78-100); Mean Corpuscular Hemoglobin 26.6 pg (26-32); Mean Corpuscular Hgb Concent. 31.1 g/dl (32-36); Mean Platelet Volume 9.8 fl (7.5-11.0); Monocyte (Absolute #) 0.77 (0.0-1.3); Monocytes % 6.9 % (0.0-12.0); Neutrophil % 65.2 % (36.0-66.0); Platelet Count 367 K/mm3 (150-450); Red Blood Count 4.28 M/mm3 (4.1-5.4); Red Cell Distribution Width 13.7 % (11.5-14.0); White Blood Count 11.2 K/mm3 (4.0-10.5)
[2020-09-27 13:36] LABS: ALBUMIN 4.1 g/dL (3.5-5.0); ALKALINE PHOSPHATASE 61 U/L (38-126); AMYLASE 66 U/L (30-110); ANION GAP 12.9 MEQ/L (5-15); BLOOD UREA NITROGEN 13 mg/dL (7-17); CHLORIDE 104 mmol/L (98-107); Calcium 9.2 mg/dL (8.4-10.2); Carbon Dioxide 24 mmol/L (22-30); Creatinine 1 0.58 mg/dL (0.52-1.04); EST GLOMERULAR FILTRATION RATE > 60.0 ML/MIN; Glucose 101 mg/dL (74-106); LIPASE 67 U/L (23-300); SGOT/AST 20 U/L (14-36); SGPT/ALT 21 U/L (0-35); SODIUM 137 mmol/L (137-145); Total Protein 7.3 g/dL (6.3-8.2)
[2020-09-27 13:54] LABS: Appearance CLOUDY (CLEAR); Bilirubin NEGATIVE (NEGATIVE); Blood NEGATIVE Ery/ul (0-5); Epithelial Cells MODERATE /HPF (FEW); Glucose NEGATIVE (NEGATIVE); Ketones NEGATIVE (NEGATIVE); Leukocyte Esterase TRACE (NEGATIVE); Mucus SLIGHT /HPF (NEGATIVE); Nitrite NEGATIVE (NEGATIVE); Protein,Urine Dip NEGATIVE (Negative); Specific Gravity 1.024 (1.005-1.025); Urobilinogen NEGATIVE mg/dL (0-1)
--- NOTE | 2020-09-27 14:25 | XRAY ---
Indication: Epigastric pain. Multiple contiguous axial images obtained through the abdomen and pelvis without contrast. Comparison: November 26, 2018. Lung bases clear of infiltrate or effusion. Heart not enlarged. Noncontrasted stomach and bowel loops are nonobstructed. Normal appendix. Previous right abdominal and pelvic masses surgically absent. No free fluid/air. Fatty hepatomegaly measuring 21 cm. Query new gallbladder sludge. Remaining liver, gallbladder, pancreas, spleen, adrenal glands, kidneys, ureters, latter, uterus, and aorta are unremarkable for noncontrast exam. Osseous structures intact. Impression: Fatty hepatomegaly. Query gallbladder sludge better evaluated with US if clinically warranted. Remaining CT abdomen/pelvis without contrast exam is negative.
[2020-09-27 14:50] VITALS: BP 131/79; PULSE 80
[2020-09-27 14:57] VITALS: O2SAT 99
== END 2020-09-27 15:05 | disposition home or self-care (01) ==
LOC: ED 12:41
DX: R10.13 Epigastric pain (principal)
CPT/HCPCS: 36000; 36415; 74176; 80053; 81001; 81025; 82150; 83605; 83690; 84484; 85025; 93005; 96360; 96374; 96375; 99284; J2405

== ENCOUNTER 2022-02-19 21:01 | Emergency (ER) | payer OTHER ==
[2022-02-19 21:26] LABS: Appearance CLOUDY (CLEAR); Bilirubin SMALL (NEGATIVE); Dipstick done @ ? MAIN LAB; Glucose NEGATIVE (NEGATIVE); Ketones NEGATIVE (NEGATIVE); Nitrite NEGATIVE (NEGATIVE); Ph 5.5 (5-6); Protein,Urine Dip 100 (Negative); RBC LARGE Ery/ul (0-5); Urobilinogen 0.2 mg/dL (0-1)
[2022-02-19 21:28] LABS: Crystals Unidentified >100 /HPF (NEGATIVE); Epithelial Cells RARE /HPF (FEW); WBC 0-2 /HPF (0-5)
[2022-02-19 21:29] LABS: Bacteria NONE SEEN /HPF (NEGATIVE); RBC >101 /HPF (0-2); Urine Cultured Indicated? YES
[2022-02-19 21:35] VITALS: BP 130/79
--- NOTE | 2022-02-19 21:54 | ERPHSYRPT ---
- History of Present Illness Source: patient Exam Limitations: no limitations Patient Subjective Stated Complaint: abnormal period bleeding and clots for 3 weeks Triage Nursing Assessment: pt ambulatory to bed by self, pt alert and oriented x3, pt c/o abnormal period bleeding and clots for about 3 weeks, pt has been on the depo shot since last march, pt is currently taking amoxicillin for sinus infection Physician History: 31 yo wf w vaginal bleeding x 3 wks. Pt denies and states that she has mild, stabbing supra-pubic pain rated a 3/10 and mild B CVA pain. She denies N/V/D/dysuria/hematuria. Timing/Duration: other (3wks) Activites at Onset: rest Quality: stabbing Onset Location: suprapubic, low back pain Pain Radiation: back Severity of Pain-Max: moderate Severity of Pain-Current: mild Prior abdominal problems: none Sexual intercourse history: non-contributory Modifying Factors: Improves With: nothing Associated Symptoms: denies symptoms Allergies/Adverse Reactions: mold Allergy (Intermediate, Verified 02/19/22 21:19) pseudoephedrine [From Sudafed] Allergy (Intermediate, Verified 02/19/22 21:19) HALLUCINATION nifedipine [From Procardia] Adverse Reaction (Mild, Verified 02/19/22 21:19) Home Medications: norgestimate-ethinyl estradioL [Tri-Sprintec] 1 tab PO DAILY 07/19/19 [History] Sertraline HCl 50 mg [Zoloft 50 mg Tablet] 50 mg PO DAILY 05/10/20 [History] Hx Tetanus, Diphtheria Vaccination/Date Given: Yes Hx Influenza Vaccination/Date Given: No Hx Pneumococcal Vaccination/Date Given: No Travel Risk - International Travel Have you traveled outside of the country in past 3 weeks: No - Coronavirus Screening Are you exhibiting any of the following symptoms?: No Close contact with a COVID-19 positive Pt in past 14-21 Days: No - Vaccine Status Have you recieved a Covid-19 vaccination: No - Review of Systems Constitutional: No Symptoms Eyes: No Symptoms Ears, Nose, & Throat: No Symptoms Respiratory: No Symptoms Cardiac: No Symptoms Abdominal/Gastrointestinal: No Symptoms Genitourinary Symptoms: No Symptoms, Vaginal Bleeding Musculoskeletal: No Symptoms Skin: No Symptoms Neurological: No Symptoms Psychological: No Symptoms Endocrine: No Symptoms Hematologic/Lymphatic: No Symptoms Immunological/Allergic: No Symptoms - Past Medical History Pertinent Past Medical History: Yes Neurological History: No Pertinent History ENT History: No Pertinent History Cardiac History: Hypertension Respiratory History: No Pertinent History Endocrine Medical History: No Pertinent History Musculoskeletal History: Other GI Medical History: No Pertinent History History: No Pertinent History Psycho-Social History: No Pertinent History Female Reproductive Disorders: No Pertinent History Other Medical History: PATIENT REPORTS HX OF "SOMETHING WRONG WITH LEFT KNEE" BUT NO SURGERY OR TREATMENT. ANXIETY - Past Surgical History Past Surgical History: Yes Neuro Surgical History: No Pertinent History Cardiac: No Pertinent History Respiratory: No Pertinent History Gastrointestinal: No Pertinent History Genitourinary: No Pertinent History Musculoskeletal: No Pertinent History Female Surgical History: Section Other Surgical History: Cat Scratch fever, surgery on neck 2007, Carpal tunnel, R ovary removed - Social History Smoking Status: Never smoker Exposure to second hand smoke: No Drug Use: none Patient Lives Alone: No Significant Family History: no pertinent family hx - Female History Hx Last Menstrual Period: 02/05/2022 Hx Now: No - Nursing Vital Signs Nursing Vital Signs: Initial Vital Signs Temperature 98.7 F 02/19/22 21:19 Pulse Rate 97 H 02/19/22 21:19 Respiratory Rate 18 02/19/22 21:19 Blood Pressure 130/79 02/19/22 21:19 O2 Sat by Pulse Oximetry 97 02/19/22 21:19 Pain Scale Pain Intensity 0 - Physical Exam General Appearance: no apparent distress Eye Exam: PERRL/EOMI, eyes nml inspection Ears, Nose, Throat Exam: normal ENT inspection, TMs normal, pharynx normal, moist mucous membranes Neck Exam: normal inspection, non-tender, supple, full range of motion, No meningismus, No mass, No Brudzinski, No Kernig's, No carotid bruit Respiratory Exam: normal breath sounds, lungs clear, airway intact, No respiratory distress Cardiovascular Exam: regular rate/rhythm, normal heart sounds, normal peripheral pulses, capillary refill <2 sec, No murmur Gastrointestinal/Abdomen Exam: soft, normal bowel sounds, tenderness (Mild supra-pubic TTP wo guarding or rebound) Back Exam: CVA tenderness (Mild B) Extremity Exam: normal inspection, normal range of motion Neurologic Exam: alert, oriented x 3, cooperative, purchasing 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 II-XII 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 tested, normal mood/affect, nml cerebellar function, nml station & gait, sensation nml Skin Exam: normal color, warm, dry, No rash Lymphatic Exam: No adenopathy SpO2 Interpretation: normal SpO2: 97 O2 Delivery: Room Air - Course Nursing assessment & vital signs reviewed: Yes - CT Exams Abdomen/Pelvis CT Interpretation: Tele-radiologist Report (CT ab-pelvis wo/Nothing acute/possible cholelithiasis) Ordered Tests: Active Orders 24 hr Category Date Time Status ABDOMEN AND PELVIS W/0 CONTRAS [CT] Stat Exams 02/19/22 21:48 Taken CBC W DIFF Stat Lab 02/19/22 22:05 Completed CULTURE,URINE Stat Lab 02/19/22 21:18 Received HCG,QUALITATIVE URINE Stat Lab 02/19/22 21:24 Completed Manual Differential NC Stat Lab 02/19/22 22:05 Completed UA W/RFX CULTURE Stat Lab 02/19/22 21:18 Completed Lab/Rad Data: Laboratory Result Diagrams 02/19/22 22:05 Laboratory Results 02/19/22 02/19/22 02/19/22 Range/Units 22:05 21:19 21:18 WBC 16.3 H (4.0-10.5) x10^3/uL RBC 4.04 L (4.1-5.4) x10^6/uL Hgb 11.0 L (12.0-16.0) g/dL Hct 35.4 (35-47) % MCV 87.6 (78-100) fL MCH 27.2 (26-32) pg MCHC 31.1 L (32-36) g/dL RDW 14.2 H (11.5-14.0) % Plt Count 434 (150-450) x10^3/uL MPV 9.8 (7.5-11.0) fL Urinalys Dipstick Clnc MAIN LAB Urine Color RED (YELLOW) Urine Appearance CLOUDY (CLEAR) Urine pH 5.5 (5-6) Ur Specific [place] 1.020 (1.005-1.025) POC Urine Protein Conf 100 (Negative) Urine Ketones NEGATIVE (NEGATIVE) Urine Nitrite NEGATIVE (NEGATIVE) Urine Bilirubin SMALL (NEGATIVE) Urine Urobilinogen 0.2 (0-1) mg/dL Urine Leukocytes NEGATIVE (NEGATIVE) Urine WBC (Auto) 0-2 (0-5) /HPF Urine RBC (Auto) >101 (0-2) /HPF U Epithel Cells (Auto) RARE (FEW) /HPF Urine Bacteria (Auto) NONE SEEN (NEGATIVE) /HPF Urine RBC LARGE (0-5) Imer/ul Unidentified Crystals >100 (NEGATIVE) /HPF Ur Culture Indicated? YES Urine Glucose NEGATIVE (NEGATIVE) mg/dL Urine HCG, Qual NEGATIVE (Negative) - Progress Counseled pt/family regarding: lab results, diagnosis, need for follow-up, rad results - Departure Departure Disposition: Home Clinical Impression: Abnormal uterine bleeding Condition: Stable Critical Care Time: No Referrals: ERIN FLORES MD [Primary Care Provider] - Follow up/PCP as directed Instructions: Heavy Periods (DC), Menstrual Cramps (DC) Additional Instructions: Follow up with Dr. Romulo Michelle for pain and bleeding Return to ER for increased bleeding or increasing pain Prescriptions: Ibuprofen [Motrin] 800 mg PO TID PRN PRN #20 PRN Reason: Pain
[2022-02-19 22:09] LABS: Hematocrit 35.4 % (35-47); Mean Cell Volume 87.6 fL (78-100); Mean Corpuscular Hemoglobin 27.2 pg (26-32); Mean Corpuscular Hgb Concent. 31.1 g/dL (32-36); Mean Platelet Volume 9.8 fL (7.5-11.0); Platelet Count 434 x10^3/uL (150-450); Red Blood Count 4.04 x10^6/uL (4.1-5.4); Red Cell Distribution Width 14.2 % (11.5-14.0); White Blood Count 16.3 x10^3/uL (4.0-10.5)
[2022-02-19 23:06] VITALS: PULSE 89
[2022-02-19 23:12] VITALS: O2SAT 97
[2022-02-20 01:03] LABS: Eosinophil 3 % (0.00-3.0); Lymphocytes 30 % (24-44); Monocyte 2 % (0.0-12.0); Platelet Estimate NORMAL (NORMAL); Total Cells Counted 100
--- NOTE | 2022-02-20 08:46 | XRAY ---
Indication: Hematuria. Vaginal bleeding. Multiple contiguous axial images obtained through the abdomen and pelvis without contrast. Comparison: September 27, 2020 Lung bases remain clear. Heart not enlarged. Stomach is distended with food/fluid. Noncontrasted stomach and bowel loops appear nonobstructed with normal appendix. No free fluid/air. Again fatty hepatomegaly measuring 20 cm. Remaining liver, gallbladder, pancreas, spleen, adrenal glands, kidneys, ureters, bladder, uterus, and aorta are unremarkable for noncontrast exam. Osseous structures intact. Impression: 1. Again fatty hepatomegaly. 2. Remaining CT abdomen/pelvis without contrast exam is again negative. Comment: Preliminary interpretation made by [facility]. No critical discrepancy.
--- NOTE | 2022-02-20 08:46 | XRAY ---
Indication: Hematuria. Vaginal bleeding. Multiple contiguous axial images obtained through the abdomen and pelvis without contrast. Comparison: September 27, 2020 Lung bases remain clear. Heart not enlarged. Stomach is distended with food/fluid. Noncontrasted stomach and bowel loops appear nonobstructed with normal appendix. No free fluid/air. Again fatty hepatomegaly measuring 20 cm. Remaining liver, gallbladder, pancreas, spleen, adrenal glands, kidneys, ureters, bladder, uterus, and aorta are unremarkable for noncontrast exam. Osseous structures intact. Impression: 1. Again fatty hepatomegaly. 2. Remaining CT abdomen/pelvis without contrast exam is again negative. Comment: Preliminary interpretation made by [facility]. No critical discrepancy.
== END 2022-02-19 23:23 | disposition home or self-care (01) ==
LOC: ED 21:01
DX: N93.9 Abnormal uterine and vaginal bleeding, unspecified (principal); R10.30 Lower abdominal pain, unspecified; M54.50 Low back pain, unspecified; Z79.899 Other long term (current) drug therapy; Z28.310 Unvaccinated for COVID-19
CPT/HCPCS: 36415; 74176; 81015; 81025; 85025; 87086; 99283

== ENCOUNTER 2023-06-04 16:52 | Emergency (ER) | payer OTHER ==
[2023-06-04 17:17] VITALS: RESP 16; TEMP 98.4
--- NOTE | 2023-06-04 18:51 | ERPHSYRPT ---
- History of Present Illness Time Seen by Provider: 06/04/23 17:30 Source: patient Exam Limitations: no limitations Patient Subjective Stated Complaint: pt states high blood pressure for the past couple days. pt states that her highest blood pressure was 170/107 Triage Nursing Assessment: pt ambulated into the er; pt is axo x4; c/o HTN; b/p on arrival was 162/93; pt denies headache, blurred vision; pt denies N/V/D; skin is PDW; no respiratory distress present; htn Physician History: 32-year-old female presents to our ED for evaluation of her blood pressure. Patient has been monitoring her blood pressure continuously at home. She observed it has been as high as 170 systolic. No associated symptomology. Patient is concerned. No chest pain or shortness of breath. No nausea vomiting or diaphoresis. No numbness tingling or weakness. No blurred vision. Patient is otherwise well. Significant other at bedside. They voiced no other complaints or concerns at this time. Portions of this note were created with voice recognition technology. There may be grammatical, spelling, punctuation or sound alike errors Timing/Duration: yesterday Severity: mild Modifying Factors: Improves With: nothing Associated Symptoms: denies symptoms Allergies/Adverse Reactions: mold Allergy (Intermediate, Verified 02/19/22 21:19) pseudoephedrine [From Sudafed] Allergy (Intermediate, Verified 02/19/22 21:19) HALLUCINATION nifedipine [From Procardia] Adverse Reaction (Mild, Verified 02/19/22 21:19) Home Medications: Amitriptyline HCl 10 mg [Elavil 10 mg] 10 mg PO HS 06/04/23 [History] Gabapentin [Neurontin ] 300 mg PO TID 06/04/23 [History] Medroxyprogesterone Acetate 150 mg IM UD 06/04/23 [History] Ubrogepant [Ubrelvy] 100 mg PO DAILY PRN 06/04/23 [History] Hx Tetanus, Diphtheria Vaccination/Date Given: Yes Hx Influenza Vaccination/Date Given: No Hx Pneumococcal Vaccination/Date Given: No Travel Risk - International Travel Have you traveled outside of the country in past 3 weeks: No - Coronavirus Screening Are you exhibiting any of the following symptoms?: No Close contact with a COVID-19 positive Pt in past 14-21 Days: No - Vaccine Status Have you recieved a Covid-19 vaccination: No - Review of Systems Constitutional: No Symptoms, No Fever, No Chills Eyes: No Symptoms Ears, Nose, & Throat: No Symptoms Respiratory: No Symptoms, No Cough, No Dyspnea Cardiac: No Symptoms, No Chest Pain, No Edema, No Syncope Abdominal/Gastrointestinal: No Symptoms, No Abdominal Pain, No Nausea, No Vomiting, No Diarrhea Genitourinary Symptoms: No Symptoms, No Dysuria Musculoskeletal: No Symptoms, No Back Pain, No Neck Pain Skin: No Symptoms, No Rash Neurological: No Symptoms, No Dizziness, No Focal Weakness, No Sensory Changes Psychological: No Symptoms Endocrine: No Symptoms Hematologic/Lymphatic: No Symptoms Immunological/Allergic: No Symptoms All Other Systems: Reviewed and Negative - Past Medical History Pertinent Past Medical History: Yes Neurological History: Migraines ENT History: No Pertinent History Cardiac History: Hypertension Respiratory History: No Pertinent History Endocrine Medical History: No Pertinent History Musculoskeletal History: No Pertinent History GI Medical History: No Pertinent History History: No Pertinent History Psycho-Social History: No Pertinent History Female Reproductive Disorders: No Pertinent History Other Medical History: PSH: 2 C-SECTIONS, OVARIAN CYST REMOVAL, 2 CUBITAL TUNNEL SURGERIES ON R UE - Past Surgical History Past Surgical History: Yes Neuro Surgical History: No Pertinent History Cardiac: No Pertinent History Respiratory: No Pertinent History Gastrointestinal: No Pertinent History Genitourinary: No Pertinent History Musculoskeletal: No Pertinent History Female Surgical History: Section Other Surgical History: Cat Scratch fever, surgery on neck 2007, Carpal tunnel, R ovary removed - Social History Smoking Status: Never smoker Exposure to second hand smoke: No Drug Use: none Patient Lives Alone: No Significant Family History: no pertinent family hx - Female History Hx Now: No - Nursing Vital Signs Nursing Vital Signs: Initial Vital Signs Pulse Rate 111 H 06/04/23 17:04 Blood Pressure 162/93 06/04/23 17:04 O2 Sat by Pulse Oximetry 97 06/04/23 17:04 Pain Scale Pain Intensity 0 - Physical Exam General Appearance: no apparent distress, alert Eye Exam: PERRL/EOMI, eyes nml inspection Ears, Nose, Throat Exam: normal ENT inspection, TMs normal, pharynx normal, moist mucous membranes Neck Exam: normal inspection, non-tender, supple, full range of motion Respiratory Exam: normal breath sounds, lungs clear, No respiratory distress Cardiovascular Exam: regular rate/rhythm, normal heart sounds, normal peripheral pulses Gastrointestinal/Abdomen Exam: soft, normal bowel sounds, No tenderness, No mass Back Exam: normal inspection, normal range of motion, No CVA tenderness, No vertebral tenderness Extremity Exam: normal inspection, normal range of motion, pelvis stable Neurologic Exam: alert, oriented x 3, cooperative, normal mood/affect, nml cerebellar function, nml station & gait, sensation nml, No motor deficits Skin Exam: normal color, warm, dry, No rash Lymphatic Exam: No adenopathy SpO2 Interpretation: normal SpO2: 97 O2 Delivery: Room Air - Course Nursing assessment & vital signs reviewed: Yes - Radiology Exams Chest X-ray Interpretation: Interpreted by me (No acute findings) Ordered Tests: Active Orders 24 hr Category Date Time Status CHEST 1 VIEW (PORTABLE) Stat Exams 06/04/23 20:01 Taken BLOOD CULTURE Stat Lab 06/04/23 20:30 Received CBC W DIFF Stat Lab 06/04/23 18:50 Completed CMP Stat Lab 06/04/23 18:50 Completed HCG QUALITATIVE, URINE Stat Lab 06/04/23 19:21 Completed TSH [TSH, 3RD Generation] Stat Lab 06/04/23 18:50 Completed UA W/RFX UR CULTURE Stat Lab 06/04/23 18:32 Completed Lab/Rad Data: Laboratory Result Diagrams 06/04/23 18:50 06/04/23 18:50 Laboratory Results 06/04/23 06/04/23 06/04/23 Range/Units 20:35 19:21 18:50 WBC (4.0-10.5) x10^3/uL RBC (4.1-5.4) x10^6/uL Hgb (12.0-16.0) g/dL Hct (35-47) % MCV (78-100) fL MCH (26-32) pg MCHC (32-36) g/dL RDW (11.5-14.0) % Plt Count (150-450) x10^3/uL MPV (7.5-11.0) fL Gran % (36.0-66.0) % Immature Gran % (Auto) (0.00-0.4) % Nucleat RBC Rel Count (0.00-0.1) % Eos # (Auto) (0-0.5) x10^3/uL Immature Gran # (Auto) (0.00-0.03) x10^3u/L Absolute Lymphs (auto) (1.0-4.6) x10^3/uL Absolute Monos (auto) (0.0-1.3) x10^3/uL Absolute Nucleated RBC (0.00-0.01) x10^3u/L Lymphocytes % (24.0-44.0) % Monocytes % (0.0-12.0) % Eosinophils % (0.00-5.0) % Basophils % (0.0-0.4) % Absolute Granulocytes (1.4-6.9) x10^3/uL Basophils # (0-0.4) x10^3/uL Sodium (137-145) mmol/L Potassium (3.5-5.1) mmol/L Chloride (98-107) mmol/L Carbon Dioxide (22-30) mmol/L Anion Gap (5-15) MEQ/L BUN (7-17) mg/dL Creatinine (0.52-1.04) mg/dL Estimated GFR ML/MIN Glucose (74-106) mg/dL Calcium (8.4-10.2) mg/dL Total Bilirubin (0.2-1.3) mg/dL AST (14-36) U/L ALT (0-35) U/L Alkaline Phosphatase (38-126) U/L Serum Total Protein (6.3-8.2) g/dL Albumin (3.5-5.0) g/dL TSH 3rd Generation 0.574 (0.47-4.68) mIU/L Urine Color (Yellow) Urine Appearance (Clear) Urine pH (4.6-8.0) Ur Specific [place] (1.005-1.030) Urine Protein (Negative) Urine Glucose (UA) (Negative) mg/dL Urine Ketones (Negative) Urine Blood (Negative) Urine Nitrite (Negative) Urine Bilirubin (Negative) Urine Urobilinogen (0.2) mg/dL Ur Leukocyte Esterase (Negative) U Hyaline Cast (Auto) (0-2) /LPF Urine Microscopic RBC (0-5) /HPF Urine Microscopic WBC (0-5) /HPF Ur Epithelial Cells (None Seen) /HPF Urine Bacteria (None Seen) /HPF Urine Culture Reflexed (NO) Urine HCG, Qual NEGATIVE (NEGATIVE) Influenza Type A Ag NEGATIVE (NEGATIVE) Influenza Type B Ag NEGATIVE (NEGATIVE) RSV (PCR) NEGATIVE (NEGATIVE) SARS-CoV-2 (PCR) NEGATIVE (NEGATIVE) 06/04/23 06/04/23 06/04/23 Range/Units 18:50 18:50 18:32 WBC 19.2 H (4.0-10.5) x10^3/uL RBC 4.99 (4.1-5.4) x10^6/uL Hgb 13.1 (12.0-16.0) g/dL Hct 41.8 (35-47) % MCV 83.8 (78-100) fL MCH 26.3 (26-32) pg MCHC 31.3 L (32-36) g/dL RDW 14.6 H (11.5-14.0) % Plt Count 445 (150-450) x10^3/uL MPV 10.2 (7.5-11.0) fL Gran % 68.1 H (36.0-66.0) % Immature Gran % (Auto) 0.7 H (0.00-0.4) % Nucleat RBC Rel Count 0.0 (0.00-0.1) % Eos # (Auto) 0.20 (0-0.5) x10^3/uL Immature Gran # (Auto) 0.14 H (0.00-0.03) x10^3u/L Absolute Lymphs (auto) 4.66 H (1.0-4.6) x10^3/uL Absolute Monos (auto) 1.03 (0.0-1.3) x10^3/uL Absolute Nucleated RBC 0.00 (0.00-0.01) x10^3u/L Lymphocytes % 24.3 (24.0-44.0) % Monocytes % 5.4 (0.0-12.0) % Eosinophils % 1.0 (0.00-5.0) % Basophils % 0.5 (0.0-0.4) % Absolute Granulocytes 13.05 H (1.4-6.9) x10^3/uL Basophils # 0.09 (0-0.4) x10^3/uL Sodium 139 (137-145) mmol/L Potassium 4.1 (3.5-5.1) mmol/L Chloride 106 (98-107) mmol/L Carbon Dioxide 22 (22-30) mmol/L Anion Gap 15.3 H (5-15) MEQ/L BUN 22 H (7-17) mg/dL Creatinine 0.71 (0.52-1.04) mg/dL Estimated GFR 116.5 ML/MIN Glucose 100 (74-106) mg/dL Calcium 9.9 (8.4-10.2) mg/dL Total Bilirubin 0.50 (0.2-1.3) mg/dL AST 21 (14-36) U/L ALT 24 (0-35) U/L Alkaline Phosphatase 68 (38-126) U/L Serum Total Protein 8.3 H (6.3-8.2) g/dL Albumin 4.5 (3.5-5.0) g/dL TSH 3rd Generation (0.47-4.68) mIU/L Urine Color Yellow (Yellow) Urine Appearance Clear (Clear) Urine pH 6.0 (4.6-8.0) Ur Specific [place] 1.020 (1.005-1.030) Urine Protein Negative (Negative) Urine Glucose (UA) Negative (Negative) mg/dL Urine Ketones Negative (Negative) Urine Blood Negative (Negative) Urine Nitrite Negative (Negative) Urine Bilirubin Negative (Negative) Urine Urobilinogen 0.2 (0.2) mg/dL Ur Leukocyte Esterase Negative (Negative) U Hyaline Cast (Auto) NONE SEEN (0-2) /LPF Urine Microscopic RBC 0-2 (0-5) /HPF Urine Microscopic WBC 0-2 (0-5) /HPF Ur Epithelial Cells None Seen (None Seen) /HPF Urine Bacteria None Seen (None Seen) /HPF Urine Culture Reflexed NO (NO) Urine HCG, Qual (NEGATIVE) Influenza Type A Ag (NEGATIVE) Influenza Type B Ag (NEGATIVE) RSV (PCR) (NEGATIVE) SARS-CoV-2 (PCR) (NEGATIVE) - Progress Progress: improved Progress Note: Patient here for blood pressure check. However patient states that she has been drinking water as per a special diet that she has been undergoing. Patient mentioned that she felt a little dizzy and lightheaded. Patient adds that she was recently started on gabapentin. We discussed the possibility of a CT head. Patient declined. However patient requested lab work in light of the fact that she has been taking high levels of fluid. She is concerned with dilution of electrolytes. Patient also wants her TSH checked. Patient otherwise asymptomatic. Patient presented with concerns for hypertension. Patient's blood pressure observed it gradually dropped down to 128 systolic. Workup essentially nonremarkable. Will discharge home. Patient agrees to follow-up with her primary care doctor within 48 hours for evaluation. Portions of this note were created with voice recognition technology. There may be grammatical, spelling, punctuation or sound alike errors Complexity problem addressed is moderate acute complicated Complexity of data reviewed and analyzed is moderate. Test ordered test reviewed. Results analyzed and correlated clinically with history and physical exam. Risk of complication and or risk of morbidity/mortality of patient management is low. Patient will be discharged home. Vital stable. Patient agrees to follow-up with her primary care doctor within 48 hours for evaluation time spent to discharge patient is approximately 10 minutes. Plan of care established for shared decision making. No social determinants of health present impede follow- up. Portions of this note were created with voice recognition technology. There may be grammatical, spelling, punctuation or sound alike errors 06/04/23 18:49 Counseled pt/family regarding: lab results, diagnosis, need for follow-up - Departure Departure Disposition: Home Clinical Impression: Leukocytosis, Well adult, Blood pressure check Condition: Stable Critical Care Time: No Referrals: ERIN FLORES MD [Primary Care Provider] - Follow up/PCP as directed Additional Instructions: Discharge/Care Plan CHERYL BATES was seen on 06/04/23 in the Emergency Room. The patient was counseled regarding Diagnosis,Lab results, Imaging studies, need for follow up and when to return to the Emergency Room. Prescriptions given: Discharge Note I have spoken with the patient and/or caregivers. I have explained the patient's condition, diagnosis and treatment plan based on the information available to me at this time. I have answered the patient's and/or caregiver's questions and addressed any concerns. The patient and/or caregivers have as good understanding of the patient's diagnosis, condition and treatment plan as can be expected at this point. The vital signs have been stable. The patient's condition is stable and appropriate for discharge from the emergency department. The patient will pursue further outpatient evaluation with the primary care physician or other designated or consulting physician as outlined in the discharge instructions. The patient and/or caregivers are agreeable to this plan of care and follow-up instructions have been explained in detail. The patient and/or caregivers have received these instruction. The patient/and or caregivers are aware that any significant change in condition or worsening of symptoms should prompt an immediate return to this or the closest emergency department or call 911.
[2023-06-04 19:18] LABS: Absolute Neutrophil Ct (ANC) 13.05 x10^3/uL (1.4-6.9); BASOPHIL % 0.5 % (0.0-0.4); Basophil (Absolute #) 0.09 x10^3/uL (0-0.4); Hematocrit 41.8 % (35-47); Hemoglobin 13.1 g/dL (12.0-16.0); IMMATURE GRAN # 0.14 x10^3u/L (0.00-0.03); IMMATURE GRAN % 0.7 % (0.00-0.4); Lymphocyte (Absolute #) 4.66 x10^3/uL (1.0-4.6); Lymphocytes % 24.3 % (24.0-44.0); Mean Cell Volume 83.8 fL (78-100); Mean Corpuscular Hemoglobin 26.3 pg (26-32); Mean Corpuscular Hgb Concent. 31.3 g/dL (32-36); Mean Platelet Volume 10.2 fL (7.5-11.0); Monocyte (Absolute #) 1.03 x10^3/uL (0.0-1.3); Monocytes % 5.4 % (0.0-12.0); Neutrophil % 68.1 % (36.0-66.0); Platelet Count 445 x10^3/uL (150-450); Red Blood Count 4.99 x10^6/uL (4.1-5.4); Red Cell Distribution Width 14.6 % (11.5-14.0); White Blood Count 19.2 x10^3/uL (4.0-10.5)
[2023-06-04 19:27] LABS: HCG URINE TEST NEGATIVE (NEGATIVE)
[2023-06-04 19:27] LABS: Appearance Clear (Clear); Bacteria None Seen /HPF (None Seen); Bilirubin Negative (Negative); Blood Negative (Negative); Epithelial Cells None Seen /HPF (None Seen); Glucose, Urine Negative (Negative); Hyaline Casts NONE SEEN /LPF (0-2); Ketones Negative (Negative); Leukocyte Esterase Negative (Negative); Nitrite Negative (Negative); Protein,Urine Dip Negative (Negative); RBC 0-2 /HPF (0-5); Urobilinogen 0.2 mg/dL (0.2); WBC 0-2 /HPF (0-5)
[2023-06-04 19:28] LABS: ADD URINE CULTURE? NO (NO)
[2023-06-04 19:38] LABS: ALBUMIN 4.5 g/dL (3.5-5.0); ANION GAP 15.3 MEQ/L (5-15); BILIRUBIN,TOTAL 0.5 mg/dL (0.2-1.3); Calcium 9.9 mg/dL (8.4-10.2); Creatinine 1 0.71 mg/dL (0.52-1.04); EST GLOMERULAR FILTRATION RATE 116.5 ML/MIN; Potassium 4.1 mmol/L (3.5-5.1); Total Protein 8.3 g/dL (6.3-8.2)
[2023-06-04 21:08] VITALS: O2SAT 97
[2023-06-04 21:16] LABS: INFLUENZA A NEGATIVE (NEGATIVE); INFLUENZA B NEGATIVE (NEGATIVE); RESPIRATORY SYNCTIAL VIRUS NEGATIVE (NEGATIVE); SARS-CoV-2 Xpert Express NEGATIVE (NEGATIVE)
[2023-06-04 21:47] VITALS: BP 135/98; PULSE 91
--- NOTE | 2023-06-04 22:59 | XRAY ---
CLINICAL HISTORY: dizziness, leukocytosis TECHNIQUE: Chest X-ray showing 1 view: AP view. COMPARISON: X-ray dated 08/18/2022. FINDINGS: Slight rotation of the patient. Borderline enlarged heart size in this view. Prominent aortic knob. There is no air space shadowing in either lung. A few tiny calcific shadows at both mid-zones. Cardiophrenic and costophrenic angles are clear. Visualized bones are unremarkable. IMPRESSION: 1. Borderline enlarged heart size in this view. Prominent aortic knob. Echocardiography is suggested. An interval new finding. 2. No acute pulmonary disease. Stable. 3. No interval change when compared to prior study. Electronically Signed by: Neyda Ng MD. (06/04/2023 22:55:42 EST)
== END 2023-06-04 21:56 | disposition home or self-care (01) ==
LOC: ED 16:52
DX: Z71.1 Person with feared health complaint in whom no diagnosis is made (principal); D72.829 Elevated white blood cell count, unspecified; I10 Essential (primary) hypertension; Z79.899 Other long term (current) drug therapy; Z28.310 Unvaccinated for COVID-19
CPT/HCPCS: 0241U; 36415; 71045; 80053; 81001; 81025; 84443; 85025; 87040; 99283